=== PATIENT | female | born 1965 | race Caucasian/White ===

== ENCOUNTER 2019-07-30 08:27 | Outpatient (CLI) | payer OTHER, SELFPAY ==
--- NOTE | 2019-07-30 | EST_ITS ---
Patient Info Name: Charline Singh Age: 54 years : 1965 Gender: Female Ht: 61 in Wt: 180 lbs BSA: 1.91 m2 Exam Date: 07/30/2019 8:40 AM [facility] Status: [facility] Admit Date: 07/30/2019 Staff Ordering Physician: Es, Douglas Galdamez MD Shell Molder: Keven Barron RDCS, RT Attending Provider: AAMIR RAMOS Referring Physician: Es MACHUCA; Exercise Technologist: Nneka Dennis RDCS Nurse: Aamir Rodriguez ANP, [facility]- Exam Type: CA stress echo Study Info Indications R07.89 - Other chest pain Treadmill exercise stress echocardiogram is performed. Summary 1. Left ventricular chamber size and systolicc function are normal with no regional wall motion abnormalities with an estimated ejection fraction of 60-65% at rest. 2. Normal augmentation of left ventricular function with exercise with no segmental wall motion abnormalities. 3. Hypertensive blood pressure response. 4. Good exercise tolerance for age. 5. Inconclusive stress echo for ischemia secondary to low heart rate achieved. No evidence of ischemia at this workload. Stress Echo Findings Left Ventricle No regional wall motion abnormalities noted post stress. Normal augmentation of all wall segments without evidence of ischemia with stress. Left Ventricle Left ventricular chamber size and systolicc function are normal with no regional wall motion abnormalities with an estimated ejection fraction of 60-65% at rest. Protocol: [place] Stress ECG Details Stage: REST Duration (min): 5 min : 54 sec Speed (mph): 0.0 Grade (%): 0 HR (bpm): 59 SBP (mmHg): 129 DBP (mmHg): 86 METS: --- Stage: REST Duration (min): 25 min : 7 sec Speed (mph): 0.0 Grade (%): 0 HR (bpm): 56 SBP (mmHg): 129 DBP (mmHg): 86 METS: --- Stage: STAGE 1 Duration (min): 1 min : 0 sec Speed (mph): 1.7 Grade (%): 10 HR (bpm): 84 SBP (mmHg): 129 DBP (mmHg): 86 METS: --- Stage: STAGE 1 Duration (min): 2 min : 0 sec Speed (mph): 1.7 Grade (%): 10 HR (bpm): 89 SBP (mmHg): 129 DBP (mmHg): 86 METS: --- Stage: STAGE 1 Duration (min): 3 min : 0 sec Speed (mph): 1.7 Grade (%): 10 HR (bpm): 89 SBP (mmHg): 114 DBP (mmHg): 73 METS: --- Stage: STAGE 2 Duration (min): 1 min : 0 sec Speed (mph): 2.5 Grade (%): 12 HR (bpm): 97 SBP (mmHg): 114 DBP (mmHg): 73 METS: --- Stage: STAGE 2 Duration (min): 2 min : 0 sec Speed (mph): 2.5 Grade (%): 12 HR (bpm): 100 SBP (mmHg): 159 DBP (mmHg): 59 METS: --- Stage: STAGE 2 Duration (min): 3 min : 0 sec Speed (mph): 2.5 Grade (%): 12 HR (bpm): 104 SBP (mmHg): 159 DBP (mmHg): 59 METS: --- Stage: STAGE 3 Duration (min): 1 min : 0 sec Speed (mph): 3.4 Grade (%): 14 HR (bpm): 110 SBP (mmHg): 206 DBP (mmHg): 100 METS: --- Stage: STAGE 3 Duration (min): 2 min : 0 sec Speed (mph): 3.4 Grade (%): 14 HR (bpm):
== END 2019-07-30 08:28 | disposition home or self-care (01) ==
LOC: ANHCARD 08:29
PROVIDERS: PCP Internal Medicine; Visit Provider Internal Medicine
DX: R07.9 Chest pain, unspecified (principal)
CPT/HCPCS: 93351

== ENCOUNTER 2020-03-30 14:44 | Outpatient (CLI) | payer OTHER, SELFPAY ==
--- NOTE | ~2020-03-30 | MM_ITS ---
EXAMINATION: MM screening concepcion BI w scooter HISTORY: Screening mammogram TECHNIQUE: Craniocaudal and mediolateral oblique 3-D tomosynthesis images were obtained and synthetic 2-D images were generated. CAD analysis was submitted and interpreted. COMPARISON: 08/14/2018, 07/2017, 07/20/2016 bilateral digital screening mammogram examinations BREAST PARENCHYMAL COMPOSITION: There are scattered areas of fibroglandular density. FINDINGS: Benign circumscribed opacities anterior outer left breast are most likely stable benign int ramammary lymph nodes. There is no evidence of suspicious mass, calcification, or architectural disto rtion to suggest malignancy in either breast. There has been no suspicious interval change. IMPRESSION: 1. No mammographic evidence of malignancy. 2. Recommend routine screening mammography in one year. BI-RADS Category 2: Benign finding(s). Reviewed, dictated and finalized at location A. L SET ARTIST
== END 2020-03-30 14:45 | disposition home or self-care (01) ==
LOC: ANHIMG 14:47
PROVIDERS: PCP Internal Medicine; Visit Provider Internal Medicine
DX: Z12.31 Encounter for screening mammogram for malignant neoplasm of breast (principal)
CPT/HCPCS: 77063; 77067

== ENCOUNTER 2021-05-30 14:49 | Outpatient (CLI) | payer OTHER, SELFPAY ==
--- NOTE | ~2021-05-30 | MM_ITS ---
EXAMINATION: MM screening concepcion BI w scooter HISTORY: Screening TECHNIQUE: Craniocaudal and mediolateral oblique 3-D tomosynthesis images were obtained and synthetic 2-D images were generated. CAD analysis was submitted and interpreted. COMPARISON: Comparison to multiple prior studies sequentially, with oldest reviewed study dated 11/2015. BREAST PARENCHYMAL COMPOSITION: Breast composed of scattered areas of fibroglandular density. FINDINGS: Stable benign-appearing left breast mass. There is no evidence of suspicious mass, calcific ation, or architectural distortion to suggest malignancy in either breast. There has been no suspicio us interval change. IMPRESSION: 1. No mammographic evidence of malignancy. 2. Recommend routine screening mammography in one year. BI-RADS Category 2: Benign finding(s). Reviewed, dictated and finalized at location A. E CLEANER
== END 2021-05-30 14:50 | disposition home or self-care (01) ==
LOC: ANHIMG 14:51
PROVIDERS: PCP Internal Medicine; Visit Provider Internal Medicine
DX: Z12.31 Encounter for screening mammogram for malignant neoplasm of breast (principal)
CPT/HCPCS: 77063; 77067

== ENCOUNTER 2022-06-25 06:33 | Day surgery (SDC) | payer OTHER, SELFPAY ==
[2022-06-12 10:43] VITALS: BMI 32.1
--- NOTE | 2022-06-22 16:11 | PM.HPGS ---
History of Present Illness History of Present Illness Consent: Risks, benefits, and alternatives have been discussed and questions answered. Patient agrees to proceed with procedure. Chief complaint: Neoplasm Screening Narrative: Charline Singh is a 57 year old female Referred for colon screening Review of Systems Review of Systems: All systems reviewed & are unremarkable except as noted in HPI and below [facility] Social History Social History Smoking status: Never smoker Alcohol intake: current Substance use: never Substance use type: does not use Living arrangements: with family Spiritual care concerns: No Meds Home Medications and Allergies Home Medications Medication Instructions Recorded Confirmed Type amlodipine 5 mg tablet 5 mg PO DAILY 06/12/22 06/12/22 History escitalopram oxalate 5 mg tablet 5 mg PO DAILY 06/12/22 06/12/22 History lisinopril 20 mg tablet 20 mg PO DAILY 06/12/22 06/12/22 History nadolol 40 mg tablet 40 mg PO DAILY 06/12/22 06/12/22 History Allergies Allergy/AdvReac Type Severity Reaction Status Date / Time morphine Allergy Mild ITCHING Verified 06/12/22 10:43 Exam Const: General: alert Orientation/consciousness: patient oriented x3 Resp: Auscultation: clear to auscultation bilaterally Cardio: Rhythm: regular rhythm GI: GI Palp: Yes Soft to palpation and No Tenderness to palpation present (GI) Neuro: General: patient oriented x3 Assessment and Plan Assessment and plan (1) Colon cancer screening: Code(s): Z12.11 - Encounter for screening for malignant neoplasm of colon Status: Acute Assessment and Plan: Colonoscopy with possible biopsy or polypectomy or cautery or injection of substances.
--- NOTE | 2022-06-25 07:17 | P.PNAN_ITS ---
Anes - Initial Pre Proc Eval Procedure: Operation Date: 06/25/22 08:30 Proposed Procedures p Screening Colonoscopy - Jose G Alejandre MD Date/Time: 06/25/22 07:17 Surgeon: Jose G Alejandre MD Pre Op Diagnosis: Neoplasm Screening Patient Data Age: 57 Gender: F Height: 1.55 m Weight: 80.3 kg Allergies Allergy/AdvReac Type Severity Reaction Status Date / Time morphine Allergy Mild ITCHING Verified 06/12/22 10:43 Home Medications Medication Instructions Recorded Confirmed Type amlodipine 5 mg tablet 5 mg PO DAILY 06/12/22 06/25/22 History escitalopram oxalate 5 mg tablet 5 mg PO DAILY 06/12/22 06/25/22 History lisinopril 20 mg tablet 20 mg PO DAILY 06/12/22 06/25/22 History nadolol 40 mg tablet 40 mg PO DAILY 06/12/22 06/25/22 History Patient hx anesthesia problems: none Family hx anesthesia problems: none Results Review: All pre-operative results and documents have been reviewed as part of the pre- operative evaluation. [facility]LY [facility], [facility] Past Medical History Medical History (Updated 06/25/22 @ 07:34 by Zen Fisher DO) Anxiety Hypertension Social History Social History Smoking status: Never smoker Alcohol intake: current Substance use: never Substance use type: does not use Living arrangements: with family Spiritual care concerns: No Anes - Eval Final PreProcedure Day of Procedure 06/25/22 07:17 Patient weight: obese Heart: regular rate and rhythm Lungs: clear to auscultation Airway: Mallampati scale class II Neurological: alert and oriented Last oral intake: >/= 8 hours ASA classification: III Emergent: no Anesthetic plan: proceed Anesthesia type and monitoring: general GIVS and standard monitoring Results Review: All pre-operative results and documents have been reviewed as part of the pre- operative evaluation. Informed Consent: The patient's anesthetic plan and its attendant risks and benefits were discussed with the patient/family/POA. Questions were solicited and answers provided to the satisfaction of the patient/family/POA.
[2022-06-25] MEDS: LACTATED RINGERS 1,000 ML 150 ML IV CONT (08:00)
[2022-06-25 08:50] VITALS: BP 102/59; PULSE 65; RESP 16; O2SAT 100
[2022-06-25 09:00] VITALS: BP 107/72; PULSE 68; RESP 16; O2SAT 100
[2022-06-25 09:10] VITALS: BP 129/71; PULSE 61; RESP 17; O2SAT 100
--- NOTE | 2022-06-25 11:59 | WPDANESPN ---
Anes - Prog Note Post-Op Date/Time: 06/25/22 11:59 Cardiovascular status: normal Respiratory status: normal Airway patency: baseline Mental status: baseline Post-Op hydration status: normal Vital Signs: Last Vital Signs Pulse 61 06/25/22 09:10 Resp 17 06/25/22 09:10 BP 129/71 06/25/22 09:10 Pulse Ox 100 06/25/22 09:10 O2 Del Method Room Air 06/25/22 09:10 Pain Score (VAS): 0 I/O: Intake & Output 06/24/22 06/25/22 06/25/22 23:59 07:59 15:59 Intake Total 400 Balance 400 Post-procedural complaints: none Patient Feedback: Patient satisfied with anesthetic care. Other Findings: Patient vital signs back to baseline. Patient denies nausea and vomiting. Patient's pain under control. Patient OK for discharge.
== END 2022-06-25 08:25 | disposition home or self-care (01) ==
PROVIDERS: PCP Internal Medicine; Visit Provider Internal Medicine Gastroenterology
PROC: 0DJD8ZZ Inspection of Lower Intestinal Tract, Via Natural or Artificial Opening Endoscopic (ICD-10-PCS; CPT 45378; principal; 2022-06-25 08:30)
DX: Z12.11 Encounter for screening for malignant neoplasm of colon (principal)
CPT/HCPCS: 45380

== ENCOUNTER 2022-06-25 09:00 | Outpatient (NON) | payer OTHER, SELFPAY | END 2022-06-25 09:01 | disposition home or self-care (01) | LOC: ANHLAB 06-26 07:53 | PROVIDERS: PCP Internal Medicine; Visit Provider Internal Medicine Gastroenterology | DX: K62.1 Rectal polyp (principal) | CPT/HCPCS: 88305 ==

== ENCOUNTER 2022-07-25 15:15 | Outpatient (CLI) | payer OTHER, SELFPAY ==
--- NOTE | ~2022-07-25 | MM_ITS ---
EXAMINATION: MM screening [facility] BI w scooter HISTORY: Screening TECHNIQUE: Craniocaudal and mediolateral oblique 3-D tomosynthesis images were obtained and synthetic 2-D images were generated. CAD analysis was submitted and interpreted. COMPARISON: Comparison to multiple prior studies sequentially, with oldest reviewed study dated 09/13. BREAST PARENCHYMAL COMPOSITION: There are scattered areas of fibroglandular density. FINDINGS: Stable benign-appearing left breast mass in the lower outer quadrant. There is no evidence of suspicious mass, calcification, or architectural distortion to suggest malignancy in either breast . There has been no suspicious interval change. IMPRESSION: 1. No mammographic evidence of malignancy. 2. Recommend routine screening mammography in one year. BI-RADS Category 2: Benign finding(s). Reviewed, dictated and finalized at location A.
== END 2022-07-25 15:16 | disposition home or self-care (01) ==
LOC: ANHIMG 15:17
PROVIDERS: PCP Internal Medicine; Visit Provider Internal Medicine
DX: Z12.31 Encounter for screening mammogram for malignant neoplasm of breast (principal)
CPT/HCPCS: 77063; 77067

== ENCOUNTER 2023-09-20 15:15 | Outpatient (CLI) | payer OTHER, SELFPAY ==
--- NOTE | ~2023-09-20 | MM_ITS ---
EXAMINATION: MM screening concepcion BI w scooter HISTORY: Screening mammogram TECHNIQUE: Craniocaudal and mediolateral oblique 3-D tomosynthesis images were obtained and synthetic 2-D images were generated. CAD analysis was submitted and interpreted. COMPARISON: 07/25/2022, 05/30/2021, 03/30/2020 bilateral screening mammogram examinations BREAST PARENCHYMAL COMPOSITION: There are scattered areas of fibroglandular density. FINDINGS: Stable lower outer quadrant benign appearing left breast mass since 03/30/2020. There is no evidence of suspicious mass, calcification, or architectural distortion to suggest malignancy in eith er breast. There has been no suspicious interval change. IMPRESSION: 1. No mammographic evidence of malignancy. 2. Recommend routine screening mammography in one year. BI-RADS Category 2: Benign finding(s). Reviewed, dictated and finalized at location B.
== END 2023-09-20 15:16 | disposition home or self-care (01) ==
LOC: ANHIMG 15:17
PROVIDERS: PCP Internal Medicine; Visit Provider Internal Medicine
DX: Z12.31 Encounter for screening mammogram for malignant neoplasm of breast (principal)
CPT/HCPCS: 77063; 77067

== ENCOUNTER 2024-04-18 11:08 | Emergency (ER) | payer OTHER, SELFPAY ==
[2024-04-18 11:22] VITALS: BP 115/59; PULSE 87; RESP 18; TEMP 37.6; O2SAT 98
--- NOTE | 2024-04-18 12:34 | ED_ITS ---
HPI - URI/Sore Throat General Chief Complaint: Upper Respiratory Infection Stated Complaint: congestion Source: patient Mode of arrival: ambulatory Limitations: no limitations History of Present Illness HPI Narrative: 59-year-old female presents to [facility] complaints of nasal congestion, sore throat, headache and fatigue for the past 2 days. Patient reports that she has similar symptoms 3 weeks ago was given a Z-Munir by her primary care provider. Patient reports that she called her primary care provider back yesterday and was started on again another Z-Munir. Patient also takes Zyrtec daily. Patient cesia es sick contacts. Patient denies recent travel. Patient denies nausea vomiting, diarrhea, shortness of breath or wheezing. MD elicited complaint: sore throat, rhinorrhea, nasal congestion and sinus pain Onset (ago): day(s) (2) Consistency: constant Able to tolerate fluids by mouth: Yes Exacerbating factors: nothing Treatments prior to arrival: antibiotics Related Data Home Medications ?Medication ?Instructions ?Recorded ?Confirmed ?Last Taken ?Type amlodipine 5 mg tablet 5 mg PO DAILY 06/12/22 06/25/22 Unknown History escitalopram oxalate 5 mg tablet 5 mg PO DAILY 06/12/22 06/25/22 Unknown History lisinopril 20 mg tablet 20 mg PO DAILY 06/12/22 06/25/22 Unknown History azithromycin 250 mg tablet mg 04/18/24 Unknown History Allergies Allergy/AdvReac Type Severity Reaction Status Date / Time morphine Allergy Mild ITCHING Verified 04/18/24 11:47 Review of Systems Constitutional: Constitutional: Reports chills, Reports fatigue, Denies fever(s) and Denies weakness ENT: Reports nasal congestion and Denies sore throat Cardiovascular: Cardiovascular: Denies chest pain Respiratory: Respiratory: Denies cough, Denies dyspnea and Denies wheezing Gastrointestinal: Gastrointestinal: Denies diarrhea, Denies nausea and Denies vomiting Integumentary/Breasts: Skin/Breast: Denies rash Neurologic: Denies headache(s) [facility] Past Medical History Medical History Anxiety Hypertension Social History Social History Smoking status: Never smoker Alcohol intake: current Substance use: never Substance use type: does not use Living arrangements: with family Spiritual care concerns: No Comments At time of signature, I agree with nursing past medical, surgical, social and family history. There is no relevant family history pertinent to the presenting complaint. Exam Const: General: healthy appearing and no acute distress Nutritional Appearance: well nourished Orientation/consciousness: patient oriented x3 Limitations: no limitations HENMT: Head: normal to inspection Ears: external ears normal and TM's normal bilaterally Face/Nose/Sinus: Normal external nose present Face and sinus: sinus tenderness frontal Mouth: Yes Normal oral and palatal mucosa present and Yes moist mucous membranes Throat: uvula midline Other: Mild erythema to posterior pharynx, moderate nasal congestion noted Eyes: Conjunctivae: conjunctivae normal Neck: Neck: normal visual inspection Resp: Effort & Inspection: normal respiratory effort and not labored Auscultation: clear to auscultation bilaterally, no crackles, no rales, no rhonchi and no wheezes Cardio: Rate: regular rate Rhythm: regular rhythm Heart sounds: no murmurs Skin: General skin exam: normal color Rashes: no rashes Neuro: General: patient oriented x3 Cranial nerves: Yes Nystagmus not present Speech: normal speech Extrem: General: normal to inspection Psych: Affect: normal affect Attitude: cooperative Course Course Level of Care: Express Care Visit Vital Signs Vital signs: Vital Signs Temperature 37.6 C H 04/18/24 11:22 Pulse Rate 87 04/18/24 11:22 Respiratory Rate 18 04/18/24 11:22 Blood Pressure 115/59 L 04/18/24 11:22 Pulse Oximetry 98 04/18/24 11:22 Oxygen Delivery Room Air 04/18/24 11:22 Temperature 37.6 C H 04/18/24 11:22 Pulse Rate 87 04/18/24 11:22 Respiratory Rate 18 04/18/24 11:22 Blood Pressure 115/59 L 04/18/24 11:22 Pulse Oximetry 98 04/18/24 11:22 Oxygen Delivery Room Air 04/18/24 11:22 MDM - URI/Sore Throat MDM Narrative Medical decision making narrative: Discussed positive COVID, negative influenza negative strep results with patient. Educated patient on CDC recommendation of 5 days of quarantine from onset of symptoms. Encouraged patient continue Zyrtec daily. Educated patient take Flonase daily as prescribed as well as to take prednisone as prescribed to help severe nasal congestion. Educated patient to proceed to the emergency room if symptoms worsen Differential Diagnosis Differential diagnosis: Likely otitis media, sinusitis and viral infection Lab Data Labs: Lab Results 04/18/24 04/18/24 Range/Units 12:45 12:53 POC SARS CoV-2 Ag Positive (Negative) POC Grp A Strep Screen Negative (Negative) Critical Care Time Critical Care Time Critical Care Time: No Discharge Plan Discharge Clinical Impression: COVID-19 Patient Disposition: Home, Self-Care Condition: Stable Instructions: COVID-19 (Coronavirus Disease 2019) (ED) Additional Instructions: Rest Increase fluids Continue Zyrtec daily Take Flonase daily Take Medrol Dosepak as prescribed Follow-up with primary care provider if symptoms not improved Proceed to the emergency room symptoms worsen Patient Language: Urdu Prescriptions: New fluticasone propionate [Flonase Allergy Relief] 50 mcg/actuation spray,suspension 1 spray intranasal BID Qty: 16 0RF Rx Instructions: administer into each nostril prednisone 20 mg tablet 40 mg PO DAILY 5 Days Qty: 10 0RF No Action azithromycin 250 mg tablet lisinopril 20 mg tablet 20 mg PO DAILY amlodipine 5 mg tablet 5 mg PO DAILY escitalopram oxalate 5 mg tablet 5 mg PO DAILY Follow-up/Referrals: Es,Douglas Galdamez MD [Primary Care Provider] - Stand Alone Forms: Work/School Release IP Time of Disposition: 13:01
[2024-04-18 12:46] LABS: EDCOVIDSCREEN Positive (Negative)
[2024-04-18 12:55] LABS: EDSTREPNEGPOS1 Negative (Negative)
[2024-04-18 13:24] LABS: EDINFLUASCREEN Negative (Negative); EDINFLUBSCREEN Negative (Negative)
--- OUTSIDE RECORDS SUMMARY | 2024-04-25 15:50 | XMS_ITS | CONTINUITY OF CARE DOCUMENT ---
Author Name dwight quintanilla Address Unknown Organization [facility] Address [address] [place] [address] Phone [phone] Care Team Providers Care Historical Records Administrator Name Role Phone Sundar Morrison MD Unavailable [phone] BRAYDEN ABREU MD Unavailable BRAYDEN ABREU MD Unavailable PROBLEMS Condition Status Date Provider Notes Inconclusive stress echo 07/29 020, calcium score 0 in July 2019 active Sundar Morrison MD HTN essential active Sundar Morrison MD Abnormal EKG active Sundar Morrison MD Overweight active Sundar Morrison MD Fatigue active Sundar Morrison MD Sinus bradycardia active Sundar Morrison MD ENCOUNTERS Date Type Provider Location Encounter Diag nosis - In-person encounter Office Visit [facility] OverweightSinus bradycardiaFatigue - In-person encounter Office Visit [facility] Inconclusive stress echo 07/2019, calcium score 0 in July 2019 - In-person encounter Office Visit [facility] - In-person encounter Office Visit [facility] Inconclusive stress echo 07/2019, calcium score 0 in July 2019 - In-person encounter Office Visit [facility] Inconclusive stress echo 07/2019, calcium score 0 in July 2019HTN essentialAbnormal EKGOverweight VITAL SIGNS Date Observation Value Provider Body Mass Index (Ratio) 28.72 kg/m2 Lilibeth Morrison MD pulse rate 49 /min Allie Posley respiratory rate E&M 16 /min Allie Posley blood pressure, cuff size regular Le slie Posley blood pressure, diastolic 69 mm[Hg] Le slie Posley blood pressure, systolic 117 mm[Hg] Les lie Posley oxygen saturation, oximetry 96 % Allie Posley weight E&M 152 [lb_av] Allie Posley height E&M 61 [in_i] Allie Posley Body Mass Index (Ratio) 33.63 kg/m2 Lilibeth Morrison MD blood pressure, diastolic 88 mm[Hg] Lindsey nkLogic blood pressure, systolic 137 mm[Hg] Joan kLogic blood pressure, diastolic 88 mm[Hg] Noel rri Sera blood pressure, systolic 137 mm[Hg] Tlyer Zamora blood pressure, cuff size large Ke rri Sera oxygen saturation, oximetry 95 % Parvin Zamora respiratory rate E&M 16 /min Parvin fostereldsalvatore pulse rate 64 /min Parvin Tanner lder weight E&M 178 [lb_av] Sundar Morrison MD height E&M 61 [in_i] Parvin Tanner lder Body Mass Index (Ratio) 36.84 kg/m2 Lilibeth Morrison MD blood pressure, cuff size large Ke abhishek Zamora blood pressure, diastolic 86 mm[Hg] Noel Lizarraga blood pressure, systolic 144 mm[Hg] Tyler Zamora oxygen saturation, oximetry 94 % Parvin Lizarraga respiratory rate E&M 14 /min Parvin fostereld pulse rate 66 /min Parvin Tanner er weight E&M 195 [lb_av] Parvin Tanner lder height E&M 61 [in_i] Parvin Tanner [facility] Body Mass Index (Ratio) 36.27 kg/m2 Lilibeth Morrison MD blood pressure, diastolic 80 mm[Hg] Lindsey nkLog blood pressure, systolic 142 mm[Hg] Joan kLog blood pressure, cuff size regular Kr isty Heather blood pressure, diastolic 80 mm[Hg] Kr isty Heather blood pressure, systolic 142 mm[Hg] Kri strach Westfall pulse rate 68 /min Charline Westfall oxygen saturation, oximetry 98 % Charline Westfall respiratory rate E&M 18 /min Charline Heather weight E&M 192 [lb_av] Charline Heather height E&M 61 [in_i] Charline Westfall Body Mass Index (Ratio) 34.01 kg/m2 Lilibeth Morrison MD blood pressure, resting Yes Sandeep tity Katheryn oxygen saturation, oximetry 95 % Chastity Katheryn blood pressure, diastolic 100 mm[Hg] Ch astity Katheryn blood pressure, systolic 146 mm[Hg] Shalini stity Katheryn respiratory rate E&M 16 /min Chastit y Katheryn pulse rate 59 /min Chastity Katheryn height E&M 61 [in_i] Chastity Katheryn weight E&M 180 [lb_av] Chastity Katheryn ALLERGIES Allergy Name Onset Date Reaction Criticality Status MORPHINE itching itching High Criticality act anibal HISTORY OF MEDICATION USE Medication Status Instructions Dates Provider Indications Com ments amlodipine 5 mg tablet active TAKE 1 TABLET BY MOUTH EVERY DAY Aissatou Weir amlodipine 5 mg tablet completed TAKE 1 TABLET BY MOUTH DAILY - Aissatou Weir amlodipine 5 mg tablet completed Take 1 tablet by mouth once a day TAKE 1 TABLET BY MOUTH DAILY - Derrick spenser lisinopril 20 mg tablet active TAKE 1 TABLET BY MOUTH EVERY DAY Joanne Medina Ozempic 0.25 mg or 0.5 mg(2 mg/1.5 mL) pen injector completed - Sundar Morrison MD amlodipine 5 mg tablet completed TAKE 1 TABLET BY MOUTH DAILY - Nelson Marte amlodipine 5 mg tablet completed Take 1 tablet by mouth once a day - Parvin Zamora nadolol 40 mg tablet completed Take 1 tablet by mouth once a day - Sundar Morrison MD #30, 30 days supply, Prescribed by BRAYDEN ABREU, Filled 07/21/2019 lisinopril 20 mg tablet completed Take 1 tablet by mouth once a day - Joanne Medina escitalopram oxalate 5 mg tablet active Take 1 tablet by mouth once a day Chastity Katheryn #30, 30 days supply, Prescribed by BRAYDEN ABREU, Filled 07/21/2019 SOCIAL HISTORY Date Observation Value Provider smoking status Never smoker Sundar ballesteros MD social history E&M Smoking Histo ry: P atient has never smoked. Sundar Morrison MD social history reviewed E&M revi ewed - no changes required Sundar Morrison MD social history E&M S moking History: Makenna bean has never smoked. Sundar Morrison MD social history reviewed E&M revi ewed - no changes required Sundar Morrison MD smoking status Never smoker Parvin vyas social history E&M S moking History: Makenna bean has never smoked. Sundar Morrison MD social history reviewed E&M revi ewed - no changes required Sundar Morrison MD smoking status Never smoker Charline Romero number of grandchildren Sundar Morrison MD social history E&M S moking History: Makenna bean has never smoked. Sundar Morrison MD social history reviewed E&M revi ewed - no changes required Sundar Morrison MD smoking status Never smoker Chastity Hogu e FAMILY HISTORY Family Member Condition Father Family History of Pr ostate Cancer: Father Family History of Hy pertension: Mother Family History of Hy pertension: Mother Family History of Di abetes: INSURANCE PROVIDERS Payer name Policy type / Coverage type [facility] [employer] republican ID [id number] ADVANCE DIRECTIVES Name Date DISCUSSED - NO DECISION MADE TREATMENT PLAN Date Name Performer [id number],SSundar ra, [place] [id number],SSundar ra, [place] [id number],B,D iscussion of benefits for remote patient monitoring took place. Patient gives consent for remote monitoring of physiologic parameters including, but not limited to, weight, blood pressure, pulse oximetry, respiratory flow rate. BP today: 137/88 P rior BP: 144/86 (07/18/2021) Her updated medication list for this problem includes: Lisinopril 20 Mg Tablet (Lisinopril) ..... Take 1 tablet by mouth once a day Amlodipine 5 Mg Tablet (Amlodipine) ..... Take 1 tablet by mouth daily Nadolol 40 Mg Tablet (Nadolol) ..... Take 1 tablet by mouth once a day Sundar Morrison MD [id number],S, Sundar Garcia ra, [place] [id number],B, Sundar Garcia ra, [place] [id number],W, B P today: 144/86 P rior BP: 142/80 (01/10/2021) Her updated medication list for this problem includes: Lisinopril 20 Mg Tablet (Lisinopril) ..... Take 1 tablet by mouth once a day Amlodipine 5 Mg Tablet (Amlodipine) ..... Take 1 tablet by mouth once a day Nadolol 40 Mg Tablet (Nadolol) ..... Take 1 tablet by mouth once a day Sundar Morrison MD [id number],S, H er updated medication list for this problem includes: Lisinopril 20 Mg Tablet (Lisinopril) ..... Take 1 tablet by mouth once a day Amlodipine 5 Mg Tablet (Amlodipine) ..... Take 1 tablet by mouth once a day Nadolol 40 Mg Tablet (Nadolol) ..... Take 1 tablet by mouth once a day Sundar Morrison MD [id number],W, Sundar Garcia ra, [place] [id number],S, c hest pain free Sundar Morrison MD [id number],S, Sundar Garcia ra, [place] [id number],W, Sundar Garcia ra, MD [id number],B, B P today: 142/80 P rior BP: 146/100 (08/05/2019) Her updated medication list for this problem includes: Amlodipine 5 Mg Tablet (Amlodipine) ..... Take 1 tablet by mouth once a day Nadolol 40 Mg Tablet (Nadolol) ..... Take 1 tablet by mouth once a day Lisinopril 10 Mg Tablet (Lisinopril) ..... Take 1 tablet by mouth once a day Sundar Morrison MD [id number],SSundar ra, MD Cardiology Sundar Dixon Cardiology Sundar Dixon [facility]iology Sundar Dixon Cardiology:This visi t has been a part of the consistent, comprehensive, and ongoing management of the chronic medical condition(s) listed above for the patient. BP today: 117/69 P rior BP: 137/88 (05/14/2022) The following medications were removed from the medication list: Nadolol 40 Mg Tablet (Nadolol) ..... Take 1 tablet by mouth once a day Her updated medication list for this problem includes: Lisinopril 20 Mg Tablet (Lisinopril) ..... Take 1 tablet by mouth every day Amlodipine 5 Mg Tablet (Amlodipine) ..... Take 1 tablet by mouth daily Sundar Morrison MD Cardiology Sundar Dixon Cardiology Sundar Dixon Cardiology Sundar Dixon Cardiology:Discussio n of benefits for remote patient monitoring took place. Patient gives consent for remote monitoring of physiologic parameters including, but not limited to, weight, blood pressure, pulse oximetry, respiratory flow rate. BP today: 137/88 P rior BP: 144/86 (07/18/2021) Her updated medication list for this problem includes: Lisinopril 20 Mg Tablet (Lisinopril) ..... Take 1 tablet by mouth once a day Amlodipine 5 Mg Tablet (Amlodipine) ..... Take 1 tablet by mouth daily Nadolol 40 Mg Tablet (Nadolol) ..... Take 1 tablet by mouth once a day Sundar Morrison MD Cardiology [facility] Sund[facility]: B P today: 144/86 P rior BP: 142/80 (01/10/2021) Her updated medication list for this problem includes: Lisinopril 20 Mg Tablet (Lisinopril) ..... Take 1 tablet by mouth once a day Amlodipine 5 Mg Tablet (Amlodipine) ..... Take 1 tablet by mouth once a day Nadolol 40 Mg Tablet (Nadolol) ..... Take 1 tablet by mouth once a day Sundar Morrison MD Cardiology: H er updated medication list for this problem includes: Lisinopril 20 Mg Tablet (Lisinopril) ..... Take 1 tablet by mouth once a day Amlodipine 5 Mg Tablet (Amlodipine) ..... Take 1 tablet by mouth once a day Nadolol 40 Mg Tablet (Nadolol) ..... Take 1 tablet by mouth once a day Sundar Morrison MD Cardiology [facility]: c hest pain free Sundar Morrison MD Cardiology Sund[facility] Dixon [facility] Sund[facility]: B P today: 142/80 P rior BP: 146/100 (08/05/2019) Her updated medication list for this problem includes: Amlodipine 5 Mg Tablet (Amlodipine) ..... Take 1 tablet by mouth once a day Nadolol 40 Mg Tablet (Nadolol) ..... Take 1 tablet by mouth once a day Lisinopril 10 Mg Tablet (Lisinopril) ..... Take 1 tablet by mouth once a day Sundar Morrison MD Cardiology [facility]: r ecommend dietary and lifestyle modifications Sundar Morrison MD Cardiology: a dd amlodipine to regimen BP today: 146/100 Her updated medication list for this problem includes: Amlodipine Besylate 5 Mg Oral Tablet (Amlodipine besylate) ..... One tab by mouth daily Nadolol 40 Mg Oral Tablet (Nadolol) ..... Tk 1 t po qd Lisinopril 10 Mg Oral Tablet (Lisinopril) ..... Tk 1 t po d Sundar Morrison MD Cardiology: s tress echo inconclusive for ischemia d/t not reaching maximum predicated HR p t exercised for 10.3 METS a symtomatic o ccasional CP onsets with stress Sundar Morrison MD Date Name RPM (remote patient monitoring) CT, Coronary Calcium Score TSH, 3RD GENERATION W/REFLEX TO FT4 CardioIQ Advanced Li pid Panel with Inflammation ([facility]) HISTORY OF PROCEDURES Procedure Date Procedure Name Provider Procedure Notes S tatus Complex e/m visit add on Sundar Morrison MD completed EKG Sundar Morrison MD complet ed EKG Sundar Morrison MD complet ed EKG Sundar Morrison MD complet ed CT- Coronary CA score Sundar Morrison MD completed EKG Sundar Morrison MD complet ed
--- OUTSIDE RECORDS SUMMARY | 2024-04-25 15:50 | XMS_ITS | Continuity of Care Document ---
Author Organization [facility] Address [address] [place] [address] Phone Care Team Providers Care Turn Laster Name Role Phone Sudeep Man DO Unavailable Unavailable Advance Directives Directive Yes / No Effective Date File Name No Information Encounters Encounter Description Practice Location Reason(s) For Visit Diagnoses Date Provider Providers Copied on Encounter [facility], [address], [place], [place], [id number], [place] tel:[phone] [facility] No Information Donovan Campbell. [address] [place], [address], [place]. tel: [phone] Family History Family Member Type Diagnosis Age At Onset No Information Payers Payer name Insurance type Covered republican ID Authoriza tiruiz(s) [employer] SO[employer] CI [id number] Social History Type Description Quantity Date Captured Comments Sex Female Smoking Status No Information Chief Complaint And Reason For Visit No Information Reason For Referral Reason For Referral No Information History Of Present Illness Encounter Date Complaint History Of Prese nt Illness No Information Functional Status Date Functional Assessmen t No Information Instructions Date Instruction Additional Infor mation No Information Assessments Type Assessment Date No Information Patient Care Teams Name Effective Dates (start - stop) Status Members No Information
--- OUTSIDE RECORDS SUMMARY | 2024-04-25 15:52 | XMS_ITS | Encounter Summary ---
Author Organization [facility] Address [address] [place] [address] Care Team Providers Care Customer Acquisition Specialist Name Role Phone Douglas Suggs MD Primary Care Provider [phone] Reason for Visit * Reason Onset Date Comments UTI 11/30/2021 Encounter Details Date Type Department Care Team (Late st Contact Info) Description 11/30/2021 [facility] [address] [place] [id number] Douglas Suggs MD [address] [place] [address] UTI Social History Tobacco Use Types Packs/Day Years Used Date Smoking Tobacco: Never Comments Unknown Sex and Gender Information Value Date Recorded Sex Assigned at Not on file Legal Sex Female 5:03 AM [employer] Gender Identity Not on file Sexual Orientation Not on file documented as of this encounter Ordered Prescriptions Prescription Sig Dispense Quantity Refills Last Filled Start Date End Date sulfamethoxazole-t rimethoprim (BACTRIM DS) 800-160 mg per tablet Take 1 tablet by mouth 2 (two) times a day for 7 days 14 tablet 11/30/2021 12/07/2021 documented in this encounter Miscellaneous Notes * Telephone Encounter - Zandra Buckley MA - 11/30/2021 12:26 PM CDT rx sent * Telephone Encounter - Douglas Suggs MD - 11/30/2021 12:10 PM CDT Bactrim ds bid #14 * Telephone Encounter - Zandra Buckley MA - 11/30/2021 11:48 AM CDT Symptoms (primary and all associated):. Pt has freq urination and urgency to urinate. Some burning sensation. She also thinks she may have covid and is getting tested at 1:00 today due to sorethroat and sinus congestion. She is asking for something for the urinary issue Onset/Frequency:.2 weeks Temperature:. Has not taken temp Recent POCT testing (Strep/Flu/COVID/etc.):.? Getting tested today Recent lab results:. Recent B/P or SPO2 results:. Current treatments (both OTC and RX):. Current dosage of insulin/Coumadin:. Last office visit:. Preferred phone:. [phone] Confirm pharmacy:. [facility] Allergies reviewed:.Morphine documented in this encounter Plan of Treatment Not on file documented as of this encounter Visit Diagnoses Not on filedocumented in this encounter Care Teams Customer Acquisition Specialist Relationship Specialty Start Date End Date Douglas Suggs MD [id number] [place] [address] PCP - General Internal Medicine 11/08/20 documented as of this encounter
--- OUTSIDE RECORDS SUMMARY | 2024-04-25 15:52 | XMS_ITS | Clinical Summary ---
Author Organization [facility] [address] Address [address] [place] [address] Care Team Providers Care Museum Tour Guide Name Role Phone Douglas Suggs MD Primary Care Provider [phone] Allergies Active Allergy Reactions Criticality Noted Date Comments Morphine Rash,Itching High 08/05/2019 Medications amLODIPine (NORVASC) 5 mg tablet daily 1 Active escitalopram (LEXAPRO) 5 mg tablet TAKE 1 TABLET BY MOUTH DAILY 30 tablet 3 4 Active lisinopriL (PRINIVIL,ZESTR IL) 2.5 mg tablet Take 1 tablet (2.5 mg total) by mouth daily 90 tablet 2 4 Active lisinopriL (PRINIVIL,ZESTR IL) 2.5 mg tablet Take 1 tablet (2.5 mg total) by mouth daily 03/31/20 24 Discontinue d(Reorder) azithromycin (ZITHROMAX) 250 mg tablet Take 2 tabs (500 mg) by mouth today, than 1 tab (250 mg) daily for 4 days. 6 tablet 4 04/06/20 24 azithromycin (ZITHROMAX) 250 mg tablet Take 2 tabs (500 mg) by mouth today, than 1 tab (250 mg) daily for 4 days. 6 tablet 4 04/22/20 24 Active Problems Problem Noted Date Diagnosed Date Primary hypertension 08/05/2019 Encounters Date Type Department Care Team Description 04/20/2024 Orders Only [facility] [address] [place] [address] Douglas Suggs MD 04/18/2024 Orders Only [facility] [address] [place] [address] Douglas Suggs MD 04/17/2024 Telephone [facility] [address] [place] [phone] Douglas Suggs MD 04/01/2024 Telephone [facility] [address] [place] [phone] Douglas Suggs MD sinus congestion 01/31/2024 8:30 AM CDT Office Visit [facility] Care at [address] [address] Marie Reeves NP Well woman exam (Primary Dx); Screening mammogram for breast cancer from Last 3 Months Immunizations Name Administration Dates Next Due Hep B Vaccine 05/07/2019,04/02/2019 Influenza, Quadrivalent, Spl it, Intramuscular 02/19/2019,01/26/2016 Influenza, Quadrivalent, Spl it, Preservative Free, Intramuscular 01/25/2020,01/16/2018,01/31/2017 Influenza, Trivalent, High D ose, Split, Preservative Free, Intramuscular 02/11/2013 Pfizer SARS-CoV-2 Monovalent Vaccination (12+ Yrs) PURPLE 06/10/2020,05/20/2020 Surgical History Surgery Date Site/Laterality Comments SECTION ABLATION Around 2004 CATARACT EXTRACTION Medical History Medical History Date Comments Hypertension Family History Medical History Relation Name Comments Hypertension Father Prostate cancer Father Endometrial cancer Mother Hyperlipidemia Mother Hypertension Mother Relation Name Status Comments Father Mother Social History Tobacco Use Types Packs/Day Years Used Date Smoking Tobacco: Never Smokeless Tobacco: Never Tobacco Cessation:Counseling Given: Not Answered Humiliation, Afraid, Rape, and Kick questionnair e Answer Date Recorded Within the last year, have y ou been afraid of your partner or ex-partner? No 01/31/2024 Within the last year, have y ou been humiliated or emotionally abused in other ways by your partner or ex-partner? No Within the last year, have y ou been kicked, hit, slapped, or otherwise physically hurt by your partner or ex-partner? No 01/31/2024 Within the last year, have y ou been raped or forced to have any kind of sexual activity by your partner or ex-partner? No 01/31/2024 AUDIT-C Answer Date Recorded Q1: How often do you have a drink containing alc ohol? 2-4 times a month 01/31/2024 Q2: How many drinks containi ng alcohol do you have on a typical day when you are drinking? 1 or 2 01/31/2024 Q3: How often do you have si x or more drinks on one occasion? Never 01/31/2024 PHQ-2 Answer Date Recorded PHQ-2 Total Score (If total score is 3 or more points, staff should administer the PHQ-9) 0 01/31/2024 Personal Safety Answer Date Recorded Getting School Help Needed Not on file 04/18 Comments Unknown Sex and Gender Information Value Date Recorded Sex Assigned at Not on file Legal Sex Female 5:03 AM WARP KNITTER HELPER Gender Identity Not on file Sexual Orientation Not on file Obstetrics History Para Term AB IAB SAB Ectopic Multiple Livin g Live Births 2 2 2 2 2 Date Outcome GA Total Labor Labor/2nd/3rd Weight Sex Type Anes PTL Margi A1 A5 Name Clin 02/25 Term 40w 0d M C-Secti on Living 09/25 Term 40w 0d F Vaginal Living Last Filed Vital Signs Vital Sign Reading Time Taken Comments Blood Pressure 128/82 01/31/2024 8:41 AM CDT Pulse 59 05/14/2023 2:54 PM WARP KNITTER HELPER Temperature - - Respiratory Rate - - Oxygen Saturation - - Inhaled Oxygen Concentration - - Weight 71.7 kg (158 lb) 01/31/2024 8:41 AM CDT Height 154.9 cm (5' 1 ) 01/31/2024 8:41 AM CDT Body Mass Index 29.85 01/31/2024 8:41 AM CDT Plan of Treatment Health Maintenance Due Date Last Done Comments Hepatitis C Screening 1965 DTaP/Tdap/Td Vaccine (1 - Tdap) 1975 Zoster Vaccine (1 of 2) 2014 Breast Cancer Screening-Mammogram 05/30/2022 02/24/2014, 03/30/2013 Covid-19 Vaccine (3 - season) 2023 06/10/2020, 05/20/2020 Influenza Vaccine (#1) 2023 , 02/19/2019, 01/16/2018, Additional history exists Cervical Cancer Screening 01/30/2025 01/31/2024 Depression Screening 01/30/2025 01/31/2024 Regular Well Visit/Exam 18-64 01/30/2025 01/31/2024, 05/14/2023, 04/04/2022, Additional history exists Colon Cancer Screening-Colonoscopy 06/25/2032 06/25/2022 Pneumococcal vaccine <65 Aged Out No longer eligible based on patient's age to complete this topic Procedures Procedure Name Priority Date/Time Associated Diagnosis Comments SCAN - LABS 04/20/2024 8:46 AM WARP KNITTER HELPER SCAN - LABS 04/18/2024 3:47 PM WARP KNITTER HELPER SCAN - LABS 04/18/2024 3:47 PM WARP KNITTER HELPER SCAN - LABS 04/18/2024 3:40 PM WARP KNITTER HELPER PAP, REFLEX HPV Routine 01/31/2024 10:30 AM CDT Well woman exam SCREENING MAMMOGRAM 2D BILATERAL Routine 02/24/2014 11:21 AM CDT from Last 3 Months or Most Recently Relevant to Health Maintenance Results * SCAN - LABS (04/20/2024 8:46 AM WARP KNITTER HELPER) us Douglas Suggs MD Final Result * SCAN - LABS (04/18/2024 3:47 PM WARP KNITTER HELPER) us Douglas Suggs MD Final Result * SCAN - LABS (04/18/2024 3:47 PM WARP KNITTER HELPER) us Douglas Suggs MD Final Result * SCAN - LABS (04/18/2024 3:40 PM WARP KNITTER HELPER) Douglas Suggs MD Final Result * Pap, reflex HPV (01/31/2024 10:30 AM CDT) CLINICAL INFORMATION: Mely Champagne Comment:SCREENING LMP Mely Champagne Comment:UNKNOWN Previous Pap Mely Champagne Comment:NONE GIVEN Prev. Bx Mely Champagne Comment:NONE GIVEN SOURCE: Mely Champagne Comment:Cervix, Endocervix Pap, specimen adequacy Mely Champagne Comment: Satisfactory for evaluation. Endocervical/transformation zone component present. HPV interp Mely Champagne Comment: Cytology Results: Negative for intraepithelial lesion or malignancy. COMMENTS Mely Champagne Comment: This Pap test has been evaluated with computer assisted technology. Legal Compliance Officer [facility] st Mitra Champagne Comment: BKA, CT(ASCP) CT screening location: [address] [address] Administration [place] [address] Comment Mely Champagne Comment: EXPLANATORY NOTE: The Pap is a screening test for cervical cancer. It is not a diagnostic test and is subject to false negative and false positive results. It is most reliable when a satisfactory sample, regularly obtained, is submitted with relevant clinical findings and history, and when the Pap result is evaluated along with historic and current clinical information. Thin prep 01/31/2024 10:3 0 AM CDT 02/01/2024 2:06 AM CDT Marie Reeves NP LAB CYTOLOGY ORDERABLES Fin al Result [facility] [address] [address] Administration [place] [id number] * Screening Mammogram 2D Bilateral (02/24/2014 11:21 AM CDT) Anatomical Region Laterality Modality Breast Bilateral Mammography 02/24/2014 11:2 1 AM CDT Impressions 02/25/2014 9:16 AM CDT No mammographic evidence of malignancy. Stable benign appearing left breast mass. Routine annual screening mammography is recommended. ASSESSMENT: ??BI-RADS: 2 BENIGN. The patient will be entered into a reminder system for an annual screening mammogram in 1 year. THIS IS AN ELECTRONICALLY VERIFIED REPORT 02/25/2014 9:12 AM: ??Ignacio Coker M.D. Ignacio Coker M.D. [place]:gisselle 09:12 AM 09:12 AM [facility] [EOD] Narrative 02/25/2014 9:16 AM CDT EXAMINATION: ??BILATERAL DIGITAL SCREENING MAMMOGRAM HISTORY: Routine screening. COMPARISON: ??02/22/2011, 02/26/2012 FINDINGS: There has been no suspicious interval change. There are scattered areas of fibroglandular density. There is a benign appearing mass in the anterior left breast, not suspiciously changed. There is no dominant mass in the right breast. There is no suspicious calcification or architectural distortion. CAD was utilized to evaluate this mammogram. Procedure Note Provider, MD Elsi - 09/12/2020 EXAMINATION: BILATERAL DIGITAL SCREENING MAMMOGRAM HISTORY: Routine screening. COMPARISON: 02/22/2011, 02/26/2012 FINDINGS: There has been no suspicious interval change. There are scattered areas of fibroglandular density. There is a benign appearing mass in the anterior left breast, notsuspiciously changed. There is no dominant mass in the right breast. There is no suspicious calcification or architectural distortion. CAD was utilized to evaluate this mammogram. IMPRESSION: No mammographic evidence of malignancy. Stable benign appearing leftbreast mass. Routine annual screening mammography is recommended. ASSESSMENT: BI-RADS: 2 BENIGN. The patient will be entered into [employer] system for an annual screening mammogram in 1 year. THIS IS AN ELECTRONICALLY VERIFIED REPORT 02/25/2014 9:12 AM: Ignacio Coker M.D. Ignacio Coker M.D. [place]:gisselle 09:12 AM 09:12 AM [facility] [EOD] Ousmane Pinto MD IMG MAMMO PROCEDURES Final Result from Last 3 Months or Most Recently Relevant to Health Maintenance Insurance [facility] [employer] [facility] [employer] Care Teams Museum Tour Guide Relationship Specialty Start Date End Date Douglas Suggs MD [address] [facility] [address] [address] PCP - General Internal Medicine 11/08/20
--- OUTSIDE RECORDS SUMMARY | 2024-04-25 15:52 | XMS_ITS | Encounter Summary ---
Author Organization [facility] Address [address] [place] [address] Care Team Providers Care Field Representatives Director Name Role Phone Douglas Suggs MD Primary Care Provider Encounter Details Date Type Department Care Team (Late st Contact Info) Description 04/24/2022 [facility] [address] [facility] [address] [place] [address] Douglas Suggs MD [address] [facility] [address] [place], [place] [id number] Social History Tobacco Use Types Packs/Day Years Used Date Smoking Tobacco: Never Comments Unknown Sex and Gender Information Value Date Recorded Sex Assigned at Not on file Legal Sex Female 5:03 AM SEARCH MANAGER Gender Identity Not on file Sexual Orientation Not on file documented as of this encounter Miscellaneous Notes * Telephone Encounter - Lolis Brian MA - 04/24/2022 12:17 PM CST Pt aware/mk CH MANAGER * Telephone Encounter - Lolis Brian MA - 04/24/2022 12:17 PM CST ----- Message from Douglas Suggs MD sent at 04/17/2022 5:57 AM SEARCH MANAGER ----- All labs ok except elevate lipid, please diet, exercise, recheck 6-12 months If remains elevated will need med change CH MANAGER documented in this encounter Plan of Treatment Not on file documented as of this encounter Visit Diagnoses Not on filedocumented in this encounter Care Teams Field Representatives Director Relationship Specialty Start Date End Date Douglas Suggs MD [address] [address] PCP - General Internal Medicine 11/08/20 documented as of this encounter
--- OUTSIDE RECORDS SUMMARY | 2024-04-25 15:52 | XMS_ITS | CONTINUITY OF CARE DOCUMENT ---
Author Name noahkhris noahkhris Address Unknown Organization [facility] Address [address] [facility] [address] [place] [address] Phone [phone] Care Team Providers Care Rotary Helper Name Role Phone Sundar Morrison MD Unavailable BRAYDEN ABREU MD Unavailable BRAYDEN ABREU MD Unavailable PROBLEMS Condition Status Date Provider Notes HTN essential active Sundar Morrison MD Abnormal EKG active Sundar Morrison MD Sinus bradycardia active Sundar Morrison MD Fatigue active Sundar Morrison MD Overweight active Sundar Morrison MD Inconclusive stress echo 4 020, calcium score 0 in July 2019 active Sundar Morrison MD ENCOUNTERS Date Type [...] rri Sera blood pressure, systolic 137 mm[Hg] Tyler Zamora blood pressure, cuff size large Ke [...] height E&M 61 [in_i] Parvin Tanner [facility] Body Mass Index (Ratio) 36.27 kg/m2 Lilibeth Morrison MD blood pressure, diastolic 80 mm[Hg] Lindsey nkLog blood pressure, systolic 142 mm[Hg] Joan kLog blood pressure, cuff size regular Kr isty Heather blood pressure, diastolic 80 mm[Hg] Kr isty Heather blood pressure, systolic 142 mm[Hg] Kri strach [place] pulse rate 68 /min Charline [place] oxygen saturation, oximetry 98 % Charline [place] respiratory rate E&M 18 /min Charline Heather weight E&M 192 [lb_av] Charline Heather height E&M 61 [in_i] Charline [place] Body Mass Index (Ratio) 34.01 kg/m2 Lilibeth [...] Payer name Policy type / Coverage type Baeta democrat ID [employer] [id number] ADVANCE DIRECTIVES Name Date DISCUSSED - NO DECISION MADE TREATMENT PLAN Date Name Performer [id number],SSundar ra, [place] [id number],SSundar ra, [place] [id number],B,D iscussion of benefits for remote patient monitoring [...] mouth once a day Sundar Morrison MD [id number],S, Sundar Garcia ra, [place] [id number],B, Sundar Garcia ra, [place] [id number],W, B P today: 144/86 P rior BP: 142/80 (01/10/2021) Her updated medication list for this problem includes: Lisinopril 20 Mg Tablet (Lisinopril) ..... Take 1 tablet by mouth once a day Amlodipine 5 Mg Tablet (Amlodipine) ..... Take 1 tablet by mouth once a day Nadolol 40 Mg Tablet (Nadolol) ..... Take 1 tablet by mouth once a day Sundar Morrison MD [id number],S, H er updated medication list for this problem includes: Lisinopril 20 Mg Tablet (Lisinopril) ..... Take 1 tablet by mouth once a day Amlodipine 5 Mg Tablet (Amlodipine) ..... Take 1 tablet by mouth once a day Nadolol 40 Mg Tablet (Nadolol) ..... Take 1 tablet by mouth once a day Sundar Morrison MD [id number],W, Sundar Garcia ra, [place] [id number],S, c hest pain free Sundar Morrison MD [id number],S, Sundar Garcia ra, MD [id number],W, Sundar Garcia ra, [place] [id number],B, B P today: 142/80 P rior BP: 146/100 (08/05/2019) Her updated medication list for this problem includes: Amlodipine 5 Mg Tablet (Amlodipine) ..... Take 1 tablet by mouth once a day Nadolol 40 Mg Tablet (Nadolol) ..... Take 1 tablet by mouth once a day Lisinopril 10 Mg Tablet (Lisinopril) ..... Take 1 tablet by mouth once a day Sundar Morrison MD [id number],SSundar ra, MD Cardiology Sundar Dixon Cardiology Sundar [...]
--- OUTSIDE RECORDS SUMMARY | 2024-04-25 15:52 | XMS_ITS | Encounter Summary ---
Author Organization [facility] Address [address] [place] [address] Care Team Providers Care Industry Operations Investigator Name Role Phone Douglas Suggs MD Primary Care Provider Reason for Visit * Reason Onset Date Comments Sinusitis 12/11/2021 Nasal Congestion 12/11/2021 Encounter Details Date Type Department Care Team (Late st Contact Info) Description 12/11/2021 [facility] [address] 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 6 tablet 12/11/2021 04/04/2022 documented in this encounter Miscellaneous Notes * Telephone Encounter - Douglas Suggs MD - 12/11/2021 8:53 AM CDT Zpak called in * Telephone Encounter - Carolee Puente - 12/11/2021 8:29 AM CDT Symptoms (primary and all associated):.Pt tested positive for Covid on 11/29/21. She stayed home from work and didn't return until the . Pt still has terrible headaches and sinus congestion. Coughing when lying down. Pt sounds hoarse. Taking Nyquil, Dayquil, Zyrtec. Nothing seems to help. She is hoping we can send an abx. Onset/Frequency:.11/29/21 Temperature:.No fever Recent POCT testing (Strep/Flu/COVID/etc.):. Recent lab results:. Recent B/P or SPO2 results:. Current treatments (both OTC and RX):. Current dosage of insulin/Coumadin:. Last office visit:.12/05/2020. LN will schedule a future appt after hearing from you. Preferred phone:.[phone] Confirm pharmacy:.[facility] Allergies reviewed:.morphine documented in this encounter Plan of Treatment Not on file documented as of this encounter Visit Diagnoses Not on filedocumented in this encounter Care Teams Industry Operations Investigator Relationship Specialty Start Date End Date Douglas Suggs MD [address] [address] PCP - General Internal Medicine 11/08/20 documented as of this encounter
--- OUTSIDE RECORDS SUMMARY | 2024-04-25 15:52 | XMS_ITS | Encounter Summary ---
Author Organization [facility] Address [address] [place] [address] Care Team Providers Care Frankfurter Inspector Name Role Phone Douglas Suggs MD Primary Care Provider Encounter Details Date Type Department Care Team (Late st Contact Info) Description 07/25/2022 [facility] [address] [facility] [address] [place] [address] Douglas Suggs MD [address] [facility] [address] [place], [place] [id number] Social History Tobacco Use Types Packs/Day Years Used Date Smoking Tobacco: Never Comments Unknown Sex and Gender Information Value Date Recorded Sex Assigned at Not on file Legal Sex Female 5:03 AM 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 Please do monthly breast self exams. documented in this encounter Plan of Treatment Not on file documented as of this encounter Procedures Procedure Name Priority Date/Time Associated Diagnosis Comments SCAN - LABS 07/25/2022 3:43 PM CDT documented in this encounter Results * SCAN - LABS (07/25/2022 3:43 PM CDT) us Douglas Suggs MD Final Result documented in this encounter Visit Diagnoses Not on filedocumented in this encounter Care Teams Frankfurter Inspector Relationship Specialty Start Date End Date Douglas Suggs MD [address] [address] PCP - General Internal Medicine 11/08/20 documented as of this encounter
--- OUTSIDE RECORDS SUMMARY | 2024-04-25 15:52 | XMS_ITS | Encounter Summary ---
Author Organization [facility] Address [address] [place] [address] Care Team Providers Care Hand Carver Name Role Phone Douglas Suggs MD Primary Care Provider [phone] Reason for Referral * Cardiology (Routine) - Authorized Specialty Diagnoses / Procedures Referred By Contac t Referred To Contact Diagnoses Palpitations Procedures 48 HR Holter Monitor Douglas Suggs MD [address] [facility] [address] [place] [address] Phone: tel: fax: [address] [address] Referral ID Status Reason Start Date Expiration Date V isits Requested Visits Authorized [id number] Authorized 11/12/2023 12/11/2024 1 1 Encounter Details Date Type Department Care Team (Late st Contact Info) Description 11/12/2023 Orders Only [facility] [address] [facility] [address] [place] [facility] [place] [address] Lolis Brian MA [address] [place] [address] Palpitations (Primary Dx) Social History Tobacco Use Types Packs/Day Years Used Date Smoking Tobacco: Never Personal Safety Answer Date Recorded Getting School Help Needed Not on file 04/18 Comments Unknown Sex and Gender Information Value Date Recorded Sex Assigned at Not on file Legal Sex Female 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
--- OUTSIDE RECORDS SUMMARY | 2024-04-25 15:52 | XMS_ITS | Referral Summary ---
Author Organization [facility] [address] Address [address] [place] [address] Care Team Providers Care Emergency Department Nurse Name Role Phone Douglas Suggs MD Primary Care Provider [phone] Encounters Date Type Department Care Team Description 04/20/2024 Orders Only [facility] [address] [phone] Douglas Suggs MD 04/18/2024 Orders Only [facility] [address] [address] Douglas Suggs MD 04/17/2024 Telephone [facility] [address] [address] Douglas Suggs MD 04/01/2024 Telephone [facility] [address] [address] Douglas Suggs MD sinus congestion 01/31/2024 8:30 AM CDT Office Visit [facility] at [address] [address] Marie Reeves NP Well woman exam (Primary Dx); Screening mammogram for breast cancer from Last 3 Months Allergies Active Allergy Reactions Criticality Noted Date [...] Noted Date Diagnosed Date Primary hypertension 08/05/2019 Immunizations Name Administration Dates Next Due Hep B Vaccine 05/07/2019,04/02/2019 Influenza, Quadrivalent, Spl it, Intramuscular 02/19/2019,01/26/2016 Influenza, Quadrivalent, Spl it, Preservative Free, Intramuscular 01/25/2020,01/16/2018,01/31/2017 Influenza, Trivalent, High D ose, Split, Preservative Free, Intramuscular 02/11/2013 Pfizer SARS-CoV-2 Monovalent Vaccination (12+ Yrs) PURPLE 06/10/2020,05/20/2020 Social History Tobacco Use Types Packs/Day Years [...] on file Legal Sex Female 5:03 AM ELIGIBILITY SUPERVISOR Gender Identity Not on file Sexual Orientation Not on file Last Filed Vital Signs Vital Sign Reading Time Taken Comments Blood Pressure 128/82 01/31/2024 8:41 AM CDT Pulse 59 05/14/2023 2:54 PM ELIGIBILITY SUPERVISOR Temperature - - Respiratory Rate - - Oxygen Saturation - - Inhaled Oxygen Concentration - - Weight 71.7 kg (158 lb) 01/31/2024 8:41 AM CDT Height 154.9 cm (5' 1 ) 01/31/2024 8:41 AM CDT Body Mass Index 29.85 01/31/2024 8:41 AM CDT Plan of Treatment Not on file Procedures Procedure Name Priority Date/Time Associated Diagnosis Comments SCAN - LABS 04/20/2024 8:46 AM ELIGIBILITY SUPERVISOR SCAN - LABS 04/18/2024 3:47 PM ELIGIBILITY SUPERVISOR SCAN - LABS 04/18/2024 3:47 PM ELIGIBILITY SUPERVISOR SCAN - LABS 04/18/2024 3:40 PM ELIGIBILITY SUPERVISOR PAP, REFLEX HPV Routine 01/31/2024 10:30 AM CDT Well woman exam SCREENING MAMMOGRAM 2D BILATERAL Routine 02/24/2014 11:21 AM CDT from Last 3 Months or Most Recently Relevant to Health Maintenance Results * SCAN - LABS (04/20/2024 8:46 AM ELIGIBILITY SUPERVISOR) Result Marcello Suggs MD Final Result * SCAN - LABS (04/18/2024 3:47 PM ELIGIBILITY SUPERVISOR) Result Marcello Suggs MD Final Result * SCAN - LABS (04/18/2024 3:47 PM ELIGIBILITY SUPERVISOR) Result Marcello Suggs MD Final Result * SCAN - LABS (04/18/2024 3:40 PM ELIGIBILITY SUPERVISOR) Result Marcello Suggs MD Final Result * Pap, reflex HPV (01/31/2024 10:30 AM CDT) CLINICAL INFORMATION: Aleshia Champagne Comment:SCREENING LMP Aleshia Champagne Comment:UNKNOWN Previous Pap Aleshia Champagne Comment:NONE GIVEN Prev. Bx Aleshia Champagne Comment:NONE GIVEN SOURCE: Aleshia Champagne Comment:Cervix, Endocervix Pap, specimen adequacy Aleshia Champagne Comment: Satisfactory for evaluation. Endocervical/transformation zone component present. HPV interp Aleshia Champagne Comment: Cytology Results: Negative for intraepithelial lesion or malignancy. COMMENTS Aleshia Champagne Comment: This Pap test has been evaluated with computer assisted technology. Screw Cutter Jonathan Stallings Comment: BKKETTY Magana(ASCP) CT screening location: [place] [address] [address] [address] Comment Aleshia Champagne Comment: EXPLANATORY NOTE: The Pap is [...] 0 AM CDT 02/01/2024 2:06 AM CDT us Marie Reeves NP LAB CYTOLOGY ORDERABLES Fin al Result [facility] [address] [place] [address] * Screening Mammogram 2D Bilateral (02/24/2014 11:21 [...] REPORT 02/25/2014 9:12 AM: ??Ignacio Coker M.D. Ingacio Coker M.D. [place] 09:12 AM 09:12 AM [facility] [EOD] Narrative 02/25/2014 9:16 AM CDT EXAMINATION: [...] BENIGN. The patient will be entered into [employer] system for an annual screening mammogram in 1 year. THIS IS AN ELECTRONICALLY VERIFIED REPORT 02/25/2014 9:12 AM: Ignacio Coker M.D. Ignacio Coker M.D. [place]:gisselle 09:12 AM 09:12 AM [facility] [EOD] Ousmane Pinto MD IMG MAMMO PROCEDURES Final Result from Last 3 Months or Most Recently Relevant to Health Maintenance Insurance [facility] [employer] [facility] Care Teams Emergency Department Nurse Relationship Specialty Start Date End Date Douglas Suggs MD [address] [address] PCP - General Internal Medicine 11/08/20
--- OUTSIDE RECORDS SUMMARY | 2024-04-25 15:52 | XMS_ITS | Encounter Summary ---
Author Organization [facility] Address [address] [place] [address] Care Team Providers Care Asphalt Paving Supervisor Name Role Phone Douglas Suggs MD Primary Care Provider Encounter Details Date Type Department Care Team (Late st Contact Info) Description 04/17/2024 [facility] [address] [facility] [address] [place] [phone] Douglas Suggs MD [address] [facility] [address] [place], [place] [id number] Social History Tobacco Use Types Packs/Day Years Used Date Smoking Tobacco: Never Smokeless Tobacco: Never Humiliation, Afraid, Rape, and Kick questionnair e [...] on file Legal Sex Female 5:03 AM PRESBYTERIAN CLERGY Gender Identity Not on file Sexual Orientation Not on file documented as of this encounter Ordered Prescriptions Prescription Sig Dispense Quantity Refills Last Filled Start Date End Date azithromycin (ZITHROMAX) 250 mg tablet Take 2 tabs (500 mg) by mouth today, than 1 tab (250 mg) daily for 4 days. 6 tablet 04/17/2024 04/22/2024 documented in this encounter Miscellaneous Notes * Telephone Encounter - Christina Hernandez - 04/17/2024 8:22 AM PRESBYTERIAN CLERGY ERX sent. BYTERIAN CLERGY * Telephone Encounter - Douglas Suggs MD - 04/17/2024 8:20 AM CST Please send out a zpak #1 Sig: as directed If not allergic. BYTERIAN CLERGY * Telephone Encounter - Christina Hernandez - 04/17/2024 8:06 AM PRESBYTERIAN CLERGY Symptoms (primary and all associated):. Head congestion, nasal congestion, sore throat, headache, fatigue Onset/Frequency:. Yesterday morning Temperature:. No Recent POCT testing (Strep/Flu/COVID/etc.):. not tested Current treatments (both OTC and RX):. Nyquil and zyrtec Current dosage of insulin/Coumadin:.no Last office visit:.04/2023 Preferred phone:.[phone] Confirm pharmacy:.[facility] Allergies reviewed:. Morphine Pt called on 04/01 similar sx given zpak and was doing better but sx came back yesterday. Requestinganother around of abx. BYTERIAN CLERGY documented in this encounter Plan of Treatment Not on file documented as of this encounter Visit Diagnoses Not on filedocumented in this encounter Care Teams Asphalt Paving Supervisor Relationship Specialty Start Date End Date Douglas Suggs MD [address] [address] PCP - General Internal Medicine 11/08/20 documented as of this encounter
--- OUTSIDE RECORDS SUMMARY | 2024-04-25 15:52 | XMS_ITS | Encounter Summary ---
Author Organization [facility] Address [address] [place] [address] Care Team Providers Care Furniture Assembler Name Role Phone Douglas Suggs MD Primary Care Provider Reason for Visit * Reason Onset Date Comments Rash 03/13/2022 Poison Lupe 03/13/2022 Encounter Details Date Type Department Care Team (Late st Contact Info) Description 03/13/2022 [facility] [address] [facility] [address] [place] [address] Douglas Suggs MD [address] [facility] [address] [place], [place] [id number] Rash; Poison Lupe Social History Tobacco Use Types Packs/Day Years Used Date Smoking Tobacco: Never Comments Unknown Sex and Gender Information Value Date Recorded Sex Assigned at Not on file Legal Sex Female 5:03 AM FRONT OFFICE ASSOCIATE Gender Identity Not on file Sexual Orientation Not on file documented as of this encounter Ordered Prescriptions Prescription Sig Dispense Quantity Refills Last Filled Start Date End Date methylPREDNISolone (MEDROL DOSEPACK) 4 mg Dosepack Take as directed on package. 21 tablet 03/13/2022 2 documented in this encounter Miscellaneous Notes * Telephone Encounter - Douglas Suggs MD - 03/13/2022 9:13 AM CST I sent in a medrol dose pack T OFFICE ASSOCIATE * Telephone Encounter - Carolee Puente - 03/13/2022 8:17 AM CST Symptoms (primary and all associated):.rash on left forearm, pinkish red bumps. Also on r forearm and beginning on L knee. She was planting bulbs on her tree line. She wore long sleeves, gloves and long pants but has it again anyway. They are oozing. Onset/Frequency:.03/09/22 Temperature:.No fever Recent POCT testing (Strep/Flu/COVID/etc.):. Recent lab results:. Recent B/P or SPO2 results:. Current treatments (both OTC and RX):. Current dosage of insulin/Coumadin:. Last office visit:.11/2020 nxt 04/04/22 Preferred phone:.[phone] Confirm pharmacy:. [phone] Allergies reviewed:.morphine T OFFICE ASSOCIATE documented in this encounter Plan of Treatment Not on file documented as of this encounter Visit Diagnoses Not on filedocumented in this encounter Care Teams Furniture Assembler Relationship Specialty Start Date End Date Douglas Suggs MD [address] [facility] [address] [place] [address] PCP - General Internal Medicine 11/08/20 documented as of this encounter
--- OUTSIDE RECORDS SUMMARY | 2024-04-25 15:52 | XMS_ITS | Encounter Summary ---
Author Organization [facility] Address [address] [place] [address] Care Team Providers Care Plumbing Service Technician Name Role Phone Douglas Suggs MD Primary Care Provider [phone] Reason for Visit * Reason Comments Preventative Care Encounter Details Date Type Department Care Team (Late st Contact Info) Description 12/05/2020 4:00 PM CDT Office Visit [facility] [address] [facility] [address] [place] [address] Douglas Suggs MD [address] [facility] [address] [place] [address] Essential hypertension (Primary Dx); Depression, unspecified depression type; Routine general medical examination at a health care facility Social History Tobacco Use Types Packs/Day Years Used Date Smoking Tobacco: Never Comments Unknown Sex and Gender Information Value Date Recorded Sex Assigned at Not on file Legal Sex Female 5:03 AM BUILDING ADMIN Gender Identity Not on file Sexual Orientation Not on file documented as of this encounter Last Filed Vital Signs Vital Sign Reading Time Taken Comments Blood Pressure 136/75 12/05/2020 4:35 PM CDT Pulse 52 12/05/2020 4:35 PM CDT Temperature - - Respiratory Rate - - Oxygen Saturation - - Inhaled Oxygen Concentration - - Weight 86.6 kg (191 lb) 12/05/2020 4:35 PM CDT Height 154.9 cm (5' 1 ) 12/05/2020 4:35 PM CDT Body Mass Index 36.09 12/05/2020 4:35 PM CDT documented in this encounter Progress Notes * Douglas Suggs MD - 12/05/2020 4:00 PM CDT Images from the original note were not included. Subjective/Objective Patient ID: Charline Singh is a 55 y.o. female. Chief Complaint Preventative Care HPI Here for evaluation and treatment of her medical problems and a wellness visit. She has been doing reasonably well she has no new complaints 1. Hypertension on medication 2. Depression on medication has been under stress with her mother's recent illnesses in the of her father. Otherwise doing well Past Surgical History: Procedure Laterality Date ??? SECTION Family History Problem Relation Age of Onset ??? Hyperlipidemia Mother ??? Hypertension Mother ??? Prostate cancer Father ??? Hypertension Father Social History Tobacco Use ??? Smoking status: Never Smoker Substance Use Topics ??? Alcohol use: Not on file ??? Drug use: Yes Types: Alcohol There is no immunization history on file for this patient. Current Outpatient Medications Medication Sig ??? amLODIPine (NORVASC) 5 mg tablet daily ??? escitalopram (LEXAPRO) 5 mg tablet TAKE 1 TABLET BY MOUTH DAILY ??? lisinopriL (PRINIVIL,ZESTRIL) 10 mg tablet Take 1 tablet (10 mg total) by mouth daily ??? nadoloL (CORGARD) 40 mg tablet Take 1 tablet (40 mg total) by mouth daily Review of Systems Constitutional: Negative for appetite change, fatigue, fever and unexpected weight change. HENT: Negative for ear pain, hearing loss and sore throat. Eyes: Negative for visual disturbance. Respiratory: Negative for cough, shortness of breath and wheezing. Cardiovascular: Negative for chest pain, palpitations and leg swelling. Gastrointestinal: Negative for abdominal pain, anal bleeding, blood in stool, constipation, diarrhea, nausea and vomiting. Endocrine: Negative for cold intolerance, heat intolerance, polydipsia, polyphagia and polyuria. Genitourinary: Negative for dysuria and hematuria. Musculoskeletal: Negative for arthralgias, back pain and joint swelling. Skin: Negative for rash. Neurological: Negative for dizziness, weakness and headaches. Hematological: Negative for adenopathy. Does not bruise/bleed easily. Psychiatric/Behavioral: Negative for dysphoric mood. The patient is not nervous/anxious. Breast: Negative for tenderness and lump(s). Patient Vital Signs for the past 24 hrs: BP Pulse Height Weight 12/05/20 1635 136/75 52 154.9 cm (5' 1 ) 86.6 kg (191 lb) Wt Readings from Last 3 Encounters: 12/05/20 86.6 kg (191 lb) Physical Exam Vitals and nursing note reviewed. Constitutional: General: She is not in acute distress. Appearance: Normal appearance. She is normal weight. HENT: Head: Normocephalic and atraumatic. Right Ear: Tympanic membrane normal. Left Ear: Tympanic membrane normal. Nose: Nose normal. No congestion. Mouth/Throat: Mouth: Mucous membranes are moist. Pharynx: Oropharynx is clear. No oropharyngeal exudate. Eyes: General: No scleral icterus. Extraocular Movements: Extraocular movements intact. Conjunctiva/sclera: Conjunctivae normal. Pupils: Pupils are equal, round, and reactive to light. Cardiovascular: Rate and Rhythm: Normal rate and regular rhythm. Pulses: Normal pulses. Heart sounds: Normal heart sounds. No murmur heard. No gallop. Pulmonary: Effort: Pulmonary effort is normal. Breath sounds: Normal breath sounds. No wheezing, rhonchi or rales. Abdominal: General: Abdomen is flat. Bowel sounds are normal. Palpations: Abdomen is soft. There is no mass. Tenderness: There is no abdominal tenderness. There is no guarding. Hernia: No hernia is present. Musculoskeletal: General: No swelling, tenderness or deformity. Normal range of motion. Cervical back: No rigidity. Right lower leg: No edema. Left lower leg: No edema. Lymphadenopathy: Cervical: No cervical adenopathy. Skin: General: Skin is warm and dry. Capillary Refill: Capillary refill takes less than 2 seconds. Findings: No rash. Neurological: General: No focal deficit present. Mental Status: She is alert and oriented to person, place, and time. Mental status is at baseline. Cranial Nerves: No cranial nerve deficit. Motor: No weakness. Deep Tendon Reflexes: Reflexes normal. Psychiatric: Mood and Affect: Mood normal. Thought Content: Thought content normal. Assessment/Plan Diagnoses and all orders for this visit: Essential hypertension (I10) (Primary) Comments: Continue present Rx check labs Depression, unspecified depression type (F32.9) Comments: Continue present Rx Routine general medical examination at a health care facility (Z00.00) Other orders - CBC with auto differential; Future - Comprehensive metabolic panel; Future - TSH; Future - Urinalysis reflex to microscopic and culture Urine; Future Labs No results found for: HGBA1C No results found for: POCCHOL No results found for: POCHDL No results found for: POCLDL No results found for: POCTRIG No results found for: A1C No results found for: CREATININE No results found for: COLORU, CLARITYU, GLUCOSEUR, BILIRUBINUR, KETONESU, SPECGRAVU, BLOODUR, ERASMO, PROTUR, UROBILINOGEN, POCURNITRITE, LEUKOCYTESU, LOTNUMBER Douglas Suggs MD documented in this encounter Plan of Treatment Scheduled Orders Name Type Priority Associated Diagnoses Orde r Schedule CBC with auto differential Lab Routine Essential hypertension Depression, unspecified depression type Routine general medical examination at a health care facility Expected: 12/05/2020, Expires: 12/05/2021 Comprehensive metabolic panel Lab Routine Essential hypertension Depression, unspecified depression type Routine general medical examination at a health care facility Expected: 12/05/2020, Expires: 12/05/2021 TSH Lab Routine Essential hypertension Depression, unspecified depression type Routine general medical examination at a health care facility Expected: 12/05/2020, Expires: 12/05/2021 Urinalysis reflex to microscopic and culture Urine Microbiology Routine Essential hypertension Depression, unspecified depression type Routine general medical examination at a health care facility Expected: 12/05/2020, Expires: 12/05/2021 documented as of this encounter Visit Diagnoses Diagnosis Essential hypertension- Primary Unspecified essential hypertension Depression, unspecified depression type Routine general medical examination at a health care facility documented in this encounter Historical Medications * This list may reflect changes made after this encounter. Medication Sig Dispense Quantity Refills Last Filled Start D ate End Date amLODIPine (NORVASC) 5 mg tablet daily 08/03/2020 added in this encounter Care Teams Plumbing Service Technician Relationship Specialty Start Date End Date Douglas Suggs MD [address] [facility] [address] [place] [address] PCP - General Internal Medicine 11/08/20 documented as of this encounter
--- OUTSIDE RECORDS SUMMARY | 2024-04-25 15:52 | XMS_ITS | Encounter Summary ---
Author Organization [facility] Address [address] [place] [address] Care Team Providers Care Dough Molder Hand Name Role Phone Douglas Suggs MD Primary Care Provider [phone] Reason for Visit * Reason Onset Date Comments PA FOR OZEMPIC 05/17/2023 Charline Singh ( Maharaj: [id number])Rx #: [id number] (1 MG/DOSE) 4MG/3ML pen-injectors Encounter Details Date Type Department Care Team (Late st Contact Info) Description 05/17/2023 [facility] [address] [facility] [address] [place] [phone] Douglas Suggs MD [address] [facility] [address] [place] [address] PA FOR OZEMPIC (Charline Singh (Maharaj: [id number])/Rx #: [id number]/Ozempic (1 MG/DOSE) 4MG/3ML pen-injectors/) Social History Tobacco Use Types Packs/Day Years Used Date Smoking Tobacco: Never Personal Safety Answer Date Recorded Getting School Help Needed Not on file 04/18 Comments Unknown Sex and Gender Information Value Date Recorded Sex Assigned at Not on file Legal Sex Female 5:03 AM BLOW MOLD MACHINE OPERATOR Gender Identity Not on file Sexual Orientation Not on file documented as of this encounter Ordered Prescriptions Prescription Sig Dispense Quantity Refills Last Filled Start Date End Date semaglutide (WEGOVY) 1 mg/0.5 mL auto-injector Inject 0.5 mL (1 mg total) under the skin every 7 days 9 mL 05/22/2023 05/24/2023 documented in this encounter Miscellaneous Notes * Addendum Note - Christina Hernandez - 05/22/2023 11:33 AM CSTAddended by: CHRISTINA HERNANDEZ on: 05/22/2023 11:33 AM Modules accepted: Orders MOLD MACHINE OPERATOR * Telephone Encounter - Christina Hernandez - 05/22/2023 11:33 AM BLOW MOLD MACHINE OPERATOR Pt notified and voiced understanding. ERX sent to pharmacy. MOLD MACHINE OPERATOR * Telephone Encounter - Christina Hernandez - 05/22/2023 11:10 AM BLOW MOLD MACHINE OPERATOR Pt calling on this, request was denied. MOLD MACHINE OPERATOR * Telephone Encounter - Kim Laureano MA - 05/21/2023 9:39 AM CST Message from Plan Your PA request has been denied. Additional information will be provided in the denial communication. (Message [phone]) MOLD MACHINE OPERATOR * Telephone Encounter - Kim Laureano MA - 05/17/2023 1:27 PM CST Chraline Singh (Maharaj: [id number]) Rx #: [id number] Ozempic (1 MG/DOSE) 4MG/3ML pen-injectors INITIATED PA FOR OZEMPIC THROUGH COVER MY MEDS AND AWAITING INSURANCE APPROVAL OR DENIAL. MOLD MACHINE OPERATOR documented in this encounter Plan of Treatment Not on file documented as of this encounter Visit Diagnoses Not on filedocumented in this encounter Discontinued Medications Medication Sig Discontinue Reason Start Date End Da te semaglutide (OZEMPIC) 1 mg/dose (4 mg/3 mL) pen injector injectionIndications:typ e 2 diabetes mellitus Inject 1 mg under the skin every 7 days Other 05/14/2023 05/22/2023 documented as of this encounter Care Teams Dough Molder Hand Relationship Specialty Start Date End Date Douglas Suggs MD [address] [address] PCP - General Internal Medicine 11/08/20 documented as of this encounter
--- OUTSIDE RECORDS SUMMARY | 2024-04-25 15:52 | XMS_ITS | Encounter Summary ---
Author Organization [facility] Address [address] [place] [address] Care Team Providers Care Material Yard Clerk Name Role Phone Douglas Suggs MD Primary Care Provider [phone] Encounter Details Date Type Department Care Team (Late st Contact Info) Description 10/15/2022 [facility] [address] [facility] [address] [place] [address] Alexandra Hung Social History Tobacco Use Types Packs/Day Years Used Date Smoking Tobacco: Never Comments Unknown Sex and Gender Information Value Date Recorded Sex Assigned at Not on file Legal Sex Female 5:03 AM CROSS TIE TRAM LOADER Gender Identity Not on file Sexual Orientation Not on file documented as of this encounter Ordered Prescriptions Prescription Sig Dispense Quantity Refills Last Filled Start Date End Date semaglutide 0.25 mg or 0.5 mg (2 mg/3 mL) pen injector injection Inject 0.5 mg under the skin every 7 days 3 mL 3 10/15/2022 03/18/2023 documented in this encounter Miscellaneous Notes * Telephone Encounter - Alexandra Hung - 10/15/2022 12:11 PM CDT LMOM regarding RX * Telephone Encounter - Douglas Suggs MD - 10/15/2022 10:57 AM CDT Yes, can increase to 0.5 weekly subq * Telephone Encounter - Alexandra Hung - 10/15/2022 10:36 AM CDT Pt called in stating that she has been on Ozempic 0.25 mg since 03/2022. Pt wants to know if she can get a dose increase on her Ozempic, because her current dosage is not working effectively anymore. Pharmacy [facility] documented in this encounter Plan of Treatment Not on file documented as of this encounter Visit Diagnoses Not on filedocumented in this encounter Discontinued Medications Medication Sig Discontinue Reason Start Date End Da te nadoloL (CORGARD) 40 mg tablet TAKE 1 TABLET(40 MG) BY MOUTH DAILY Dose adjustment 10/01/2022 10/15/2022 documented as of this encounter Care Teams Material Yard Clerk Relationship Specialty Start Date End Date Douglas Suggs MD [address] [address] PCP - General Internal Medicine 11/08/20 documented as of this encounter
--- OUTSIDE RECORDS SUMMARY | 2024-04-25 15:52 | XMS_ITS | Encounter Summary ---
Author Organization [facility] Address [address] [place] [address] Care Team Providers Care Lockstitch Sleeve Setter Name Role Phone Douglas Suggs MD Primary Care Provider Reason for Visit * Reason Onset Date Comments Weight Loss 07/19/2021 Encounter Details Date Type Department Care Team (Late st Contact Info) Description 07/19/2021 [facility] [address] [facility] [address] [place] [phone] Douglas Suggs MD [address] [facility] [address] [place], [place] [id number] Weight Loss Social History Tobacco Use Types Packs/Day Years Used Date Smoking Tobacco: Never Comments Unknown Sex and Gender Information Value Date Recorded Sex Assigned at Not on file Legal Sex Female 5:03 AM TIME STUDY ANALYST Gender Identity Not on file Sexual Orientation Not on file documented as of this encounter Miscellaneous Notes * Telephone Encounter - Lolis Brian MA - 07/20/2021 2:50 PM CDT Pt aware sent the ozempic to pharmacy * Telephone Encounter - Douglas Suggs MD - 07/19/2021 12:04 PM CDT Would prefer ozempic if not done before. * Telephone Encounter - Zandra Buckley MA - 07/19/2021 11:41 AM CDT Patient is wanting to know if you would rx Contrave. She weighed 195 yesterday at [facility] and is 5' garth documented in this encounter Plan of Treatment Not on file documented as of this encounter Visit Diagnoses Not on filedocumented in this encounter Care Teams Lockstitch Sleeve Setter Relationship Specialty Start Date End Date Douglas Suggs MD [id number] [place] [address] PCP - General Internal Medicine 11/08/20 documented as of this encounter
--- OUTSIDE RECORDS SUMMARY | 2024-04-25 15:52 | XMS_ITS | Encounter Summary ---
Author Organization [facility] Address [address] [place] [address] Care Team Providers Care Coloring Checker Name Role Phone Douglas Suggs MD Primary Care Provider Reason for Visit * Reason Onset Date Comments Med Refill 11/08/2020 Encounter Details Date Type Department Care Team (Late st Contact Info) Description 11/08/2020 [facility] [address] [facility] [address] [place] [phone] Douglas Suggs MD [address] [facility] [address] [place], [place] [id number] Med Refill Social History Tobacco Use Types Packs/Day Years Used Date Smoking Tobacco: Never Assessed Comments Unknown Sex and Gender Information Value Date Recorded Sex Assigned at Not on file 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 Gender Identity Not on file Sexual Orientation Not on file documented as of this encounter Ordered Prescriptions Prescription Sig Dispense Quantity Refills Last Filled Start Date End Date nadoloL (CORGARD) 40 mg tablet Take 1 tablet (40 mg total) by mouth daily 30 tablet 11/08/2020 12/07/2020 lisinopriL (PRINIVIL,ZESTRIL) 10 mg tablet Take 1 tablet (10 mg total) by mouth daily 30 tablet 11/08/2020 12/07/2020 documented in this encounter Miscellaneous Notes * Telephone Encounter - Douglas Suggs MD - 11/08/2020 10:17 AM CDT Its fine now that she has an appt * Telephone Encounter - Zandra Buckley MA - 11/08/2020 10:09 AM CDT PATIENT asking for refill Lisinopril and nadalol Apt 12-05-2020 radha parikh [place] documented in this encounter Plan of Treatment Not on file documented as of this encounter Visit Diagnoses Not on filedocumented in this encounter Discontinued Medications Medication Sig Discontinue Reason Start Date End Da te nadoloL (CORGARD) 40 mg tablet TAKE 1 TABLET BY MOUTH EVERY DAY Reorder 10/05/2020 11/08/2020 lisinopriL (PRINIVIL,ZESTRIL) 10 mg tablet TAKE 1 TABLET BY MOUTH DAILY Reorder 10/05/2020 11/08/2020 documented as of this encounter Care Teams Coloring Checker Relationship Specialty Start Date End Date Douglas Suggs MD [id number] [place] [address] PCP - General Internal Medicine 11/08/20 documented as of this encounter
--- OUTSIDE RECORDS SUMMARY | 2024-04-25 15:52 | XMS_ITS | Encounter Summary ---
Author Organization [facility] Address [address] [place] [address] Care Team Providers Care Networking Technology Instructor Name Role Phone Douglas Suggs MD Primary Care Provider [phone] Encounter Details Date Type Department Care Team (Late st Contact Info) Description 05/30/2021 Orders Only [facility] [address] [facility] [address] [place] [phone] Douglas Suggs MD [address] [facility] [address] [place], [place] [id number] Social History Tobacco Use Types Packs/Day Years Used Date Smoking Tobacco: Never Comments Unknown Sex and Gender Information Value Date Recorded Sex Assigned at Not on file Legal Sex Female 5:03 AM CONSULTING PSYCHIATRIST Gender Identity Not on file Sexual Orientation Not on file documented as of this encounter Plan of Treatment Not on file documented as of this encounter Procedures Procedure Name Priority Date/Time Associated Diagnosis Comments SCAN - RADIOLOGY/IMAGING 05/30/2021 3:39 PM CONSULTING PSYCHIATRIST documented in this encounter Results * SCAN - RADIOLOGY/IMAGING (05/30/2021 3:39 PM CONSULTING PSYCHIATRIST) Anatomical Region Laterality Modality Other us Douglas Suggs MD Final Result documented in this encounter Visit Diagnoses Not on filedocumented in this encounter Care Teams Networking Technology Instructor Relationship Specialty Start Date End Date Douglas Suggs MD [address] [facility] [address] [place] [address] PCP - General Internal Medicine 11/08/20 documented as of this encounter
--- OUTSIDE RECORDS SUMMARY | 2024-04-25 15:52 | XMS_ITS | Encounter Summary ---
Author Organization [facility] Address [address] [place] [address] Care Team Providers Care Bariatric Coordinator Name Role Phone Douglas Suggs MD Primary Care Provider Encounter Details Date Type Department Care Team (Late st Contact Info) Description 09/20/2023 Orders Only [facility] [address] [facility] [address] [place] [facility] [place] [phone] Douglas Suggs MD [address] [facility] [address] [place], [place] [id number] Social History Tobacco Use Types Packs/Day Years Used Date Smoking Tobacco: Never Personal Safety Answer Date Recorded Getting School Help Needed Not on file 04/18 Comments Unknown Sex and Gender Information Value Date Recorded Sex Assigned at Not on file 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 Please do monthly breast self exams. documented in this encounter Plan of Treatment Not on file documented as of this encounter Procedures Procedure Name Priority Date/Time Associated Diagnosis Comments SCAN - RADIOLOGY/IMAGING 09/20/2023 4:20 PM CDT documented in this encounter Results * SCAN - RADIOLOGY/IMAGING (09/20/2023 4:20 PM CDT) Anatomical Region Laterality Modality Other us Douglas Suggs MD Final Result documented in this encounter Visit Diagnoses Not on filedocumented in this encounter Care Teams Bariatric Coordinator Relationship Specialty Start Date End Date Douglas Suggs MD [address] [facility] [address] [address] PCP - General Internal Medicine 11/08/20 documented as of this encounter
--- OUTSIDE RECORDS SUMMARY | 2024-04-25 15:52 | XMS_ITS | Encounter Summary ---
Author Organization [facility] Address [address] [place] [address] Care Team Providers Care Sales Service Manager Name Role Phone No, Physician Primary Care Provider [phone] Encounter Details Date Type Department Care Team (Late st Contact Info) Description 04/15/2020 [facility] [address] [facility] [address] [place] [address] Douglas Suggs MD [address] [facility] [address] [place] [address] Social History Tobacco Use Types Packs/Day Years Used Date Smoking Tobacco: Never Assessed Comments Unknown Sex and Gender Information Value Date Recorded Sex Assigned at Not on file 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 Gender Identity Not on file Sexual Orientation Not on file documented as of this encounter Miscellaneous Notes * Telephone Encounter - Lolis Brian MA - 04/15/2020 8:20 AM CST Pt aware/mk MILL MECHANIC * Telephone Encounter - Lolis Brian MA - 04/15/2020 8:20 AM CST ----- Message from Douglas Suggs MD sent at 04/12/2020 2:10 PM WINDMILL MECHANIC ----- Mammogram normal MILL MECHANIC documented in this encounter Plan of Treatment Not on file documented as of this encounter Visit Diagnoses Not on filedocumented in this encounter Care Teams Sales Service Manager Relationship Specialty Start Date End Date No, Physician PCP - General 07/30/19 11/07/20 documented as of this encounter
--- OUTSIDE RECORDS SUMMARY | 2024-04-25 15:52 | XMS_ITS | Encounter Summary ---
Author Organization [facility] Address [address] [place] [address] Care Team Providers Care Casing Cleaner Name Role Phone Douglas Suggs MD Primary Care Provider [phone] Encounter Details Date Type Department Care Team (Late st Contact Info) Description 02/26/2023 Orders Only [facility] [address] [facility] [address] [place] [facility] [place] [address] Lolis Brian, [place] [address] [place] [address] Social History Tobacco Use Types Packs/Day Years Used Date Smoking Tobacco: Never Comments Unknown Sex and Gender Information Value Date Recorded Sex Assigned at Not on file 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 Gender Identity Not on file Sexual Orientation Not on file documented as of this encounter Ordered Prescriptions Prescription Sig Dispense Quantity Refills Last Filled Start Date End Date nadoloL (CORGARD) 40 mg tablet Take 1 tablet (40 mg total) by mouth daily 90 tablet 1 02/26/2023 05/27/2023 documented in this encounter Plan of Treatment Not on file documented as of this encounter Visit Diagnoses Not on filedocumented in this encounter Discontinued Medications Medication Sig Discontinue Reason Start Date End Da te nadoloL (CORGARD) 40 mg tablet Reorder 11/27/2022 1 documented as of this encounter Care Teams Casing Cleaner Relationship Specialty Start Date End Date Douglas Suggs MD [address] [facility] [address] [place] [address] PCP - General Internal Medicine 11/08/20 documented as of this encounter
--- OUTSIDE RECORDS SUMMARY | 2024-04-25 15:52 | XMS_ITS | Encounter Summary ---
Author Organization [facility] Address [address] [place] [address] Care Team Providers Care Wood Lather Name Role Phone Douglas Suggs MD Primary Care Provider [phone] Reason for Referral * Diagnostic Imaging (Routine) - Closed Specialty Diagnoses / Procedures Referred By Contac t Referred To Contact Diagnoses Visit for screening mammogram Procedures Screening Mammogram Bilateral W Douglas Dupont MD [address] [facility] [address] [place] [address] Phone: tel: fax: External Order Referral ID Status Reason Start Date Expiration Date Visits Re quested Visits Authorized [id number] Closed 05/14/2023 06/12/2024 1 1 ING TELEGRAM PERFORMER Reason for Visit * Reason Comments Preventative Care Encounter Details Date Type Department Care Team (Late st Contact Info) Description 05/14/2023 2:30 PM SINGING TELEGRAM PERFORMER Office Visit [facility] [address] [facility] [address] [facility] [place] [address] Douglas Suggs MD [address] [facility] [address] [place] [address] Visit for screening mammogram (Primary Dx); Encounter for lipid screening for cardiovascular disease; Essential hypertension; Depression, unspecified depression type; Hyperglycemia Social History Tobacco Use Types Packs/Day Years Used Date Smoking Tobacco: Never Tobacco Cessation:Counseling Given: Not Answered Personal Safety Answer Date Recorded Getting School Help Needed Not on file 04/18 Comments Unknown Sex and Gender Information Value Date Recorded Sex Assigned at Not on file Legal Sex Female 5:03 AM SINGING TELEGRAM PERFORMER Gender Identity Not on file Sexual Orientation Not on file documented as of this encounter Last Filed Vital Signs Vital Sign Reading Time Taken Comments Blood Pressure 122/85 05/14/2023 2:54 PM SINGING TELEGRAM PERFORMER Pulse 59 05/14/2023 2:54 PM SINGING TELEGRAM PERFORMER Temperature - - Respiratory Rate - - Oxygen Saturation - - Inhaled Oxygen Concentration - - Weight 71.2 kg (157 lb) 05/14/2023 2:54 PM SINGING TELEGRAM PERFORMER Height 154.9 cm (5' 1 ) 05/14/2023 2:54 PM SINGING TELEGRAM PERFORMER Body Mass Index 29.66 05/14/2023 2:54 PM SINGING TELEGRAM PERFORMER documented in this encounter Ordered Prescriptions Prescription Sig Dispense Quantity Refills Last Filled Start Date End Date semaglutide (OZEMPIC) 1 mg/dose (4 mg/3 mL) pen injector injectionIndicatio ns:type 2 diabetes mellitus Inject 1 mg under the skin every 7 days 9 mL 05/14/2023 4 varicella-zoster (SHINGRIX) 50 mcg/0.5 mL vaccine Inject 0.5 mL into the muscle as instructed once for 1 dose 0.5 mL 1 05/14/2023 4 documented in this encounter Progress Notes * Douglas Suggs MD - 05/14/2023 2:30 PM CST Images from the original note were not included. Subjective/Objective Patient ID: Charline Singh is a 58 y.o. female. Chief Complaint Preventative Care HPI Here for evaluation and treatment of her medical problems and a wellness visit. She has been doing reasonably well she has no new complaints 1. Hypertension on medication 2. Depression on medication has been under stress with her mother's recent illnesses in the of her father. Otherwise doing well 3. Hyperglycemia, on ozempic. Has been doing well. Weight loss has occurred. She is feeling much better. Past Surgical History: Procedure Laterality Date SECTION Family History Problem Relation Age of Onset Hyperlipidemia Mother Hypertension Mother Prostate cancer Father Hypertension Father Immunization History Administered Date(s) Administered Hep B Vaccine 04/02/2019, 05/07/2019 Influenza, Quadrivalent, Split, Intramuscular 01/26/2016, 02/19/2019 Influenza, Quadrivalent, Split, Preservative Free, Intramuscular 01/31/2017, 01/16/2018, 01/25/2020 Influenza, Trivalent, High Dose, Split, Preservative Free, Intramuscular 02/11/2013 Pfizer SARS-CoV-2 Monovalent Vaccination (12+ Yrs) PURPLE 05/20/2020, 06/10/2020 Current Outpatient Medications Medication Sig amLODIPine (NORVASC) 5 mg tablet daily escitalopram (LEXAPRO) 5 mg tablet TAKE 1 TABLET BY MOUTH DAILY lisinopriL (PRINIVIL,ZESTRIL) 20 mg tablet Take 20 mg by mouth daily nadoloL (CORGARD) 40 mg tablet Take 1 tablet (40 mg total) by mouth daily semaglutide (Ozempic) 0.25 mg or 0.5 mg (2 mg/3 mL) pen injector injection INJECT 0.5 MG UNDER THE SKIN EVERY 7 DAYS varicella-zoster (SHINGRIX) 50 mcg/0.5 mL vaccine Inject 0.5 mL into the muscle as instructed once for 1 dose Review of Systems Constitutional: Negative for appetite [...] past 24 hrs: BP Pulse Height Weight 05/14/23 1454 122/85 59 154.9 cm (5' 1 ) 71.2 kg (157 lb) Wt Readings from Last 3 Encounters: 05/14/23 71.2 kg (157 lb) 04/04/22 78 kg (172 lb) 12/05/20 86.6 kg (191 lb) Physical Exam [...] Diagnoses and all orders for this visit: Visit for screening mammogram (Z12.31) (Primary) - Screening Mammogram Bilateral W Beto; Future Encounter for lipid screening for cardiovascular disease (Z13.220, Z13.6) - POCT glucose - POCT lipid panel - POCT hemoglobin A1c Essential hypertension (I10) Comments: BP at target. Doing very well Orders: - CBC with auto differential; Future - Comprehensive metabolic panel; Future - TSH; Future - Urinalysis reflex to microscopic and culture Urine; Future Depression, unspecified depression type (F32.A) Comments: Mood is markedly better continue medication Orders: - CBC with auto differential; Future - Comprehensive metabolic panel; Future - TSH; Future - Urinalysis reflex to microscopic and culture Urine; Future Hyperglycemia (R73.9) Comments: Marked improvement on Ozempic. Continue with weight loss of medication Orders: - CBC with auto differential; Future - Comprehensive metabolic panel; Future - TSH; Future - Urinalysis reflex to microscopic and culture Urine; Future Other orders - varicella-zoster (SHINGRIX) 50 mcg/0.5 mL vaccine; Inject 0.5 mL into the muscle as instructed once for 1 dose - semaglutide (OZEMPIC) 1 mg/dose (4 mg/3 mL) pen injector injection; Inject 1 mg under the skin every 7 days Labs Lab Results Component Value Date HGBA1C 5.3 05/14/2023 Lab Results Component Value Date POCCHOL 230 05/14/2023 POCCHOL 235 04/04/2022 Lab Results Component Value Date POCHDL 43 05/14/2023 POCHDL 41 04/04/2022 Lab Results Component Value Date POCLDL 157 05/14/2023 POCLDL 170 04/04/2022 Lab Results Component Value Date POCTRIG 150 05/14/2023 POCTRIG 121 04/04/2022 No results found for: A1C Lab Results Component Value Date CREATININE 0.78 04/04/2022 Lab Results Component Value Date COLORU Yellow 04/04/2022 GLUCOSEUR Negative 04/04/2022 KETONESU Negative 04/04/2022 Douglas Suggs MD ING TELEGRAM PERFORMER documented in this encounter Miscellaneous Notes * Result Encounter Note - Douglas Suggs MD - 05/20/2023 7:49 AM SINGING TELEGRAM PERFORMER Charline, I am happy to report that your labs looked good. No significant abnormalities at this time ING TELEGRAM PERFORMER documented in this encounter Plan of Treatment Scheduled Orders Name Type Priority Associated Diagnoses Orde r Schedule Screening Mammogram Bilateral W Beto Imaging Schedule Routine, Read Routine (OP Routine) Visit for screening mammogram Expected: 05/14/2023, Expires: 07/12/2024 documented as of this encounter Procedures Procedure Name Priority Date/Time Associated Diagnosis Comments URINE CULTURE, COMPREHENSIVE Routine 05/14/2023 3:28 PM SINGING TELEGRAM PERFORMER MICROSCOPIC EXAMINATION Routine 05/14/2023 3:28 PM SINGING TELEGRAM PERFORMER URINALYSIS AND REFLEX TO MICROSCOPIC AND CULTURE Routine 05/14/2023 3:28 PM SINGING TELEGRAM PERFORMER Essential hypertension Depression, unspecified depression type Hyperglycemia CBC WITH AUTO DIFFERENTIAL Routine 05/14/2023 3:28 PM SINGING TELEGRAM PERFORMER Essential hypertension Depression, unspecified depression type Hyperglycemia TSH Routine 05/14/2023 3:28 PM SINGING TELEGRAM PERFORMER Essential hypertension Depression, unspecified depression type Hyperglycemia COMPREHENSIVE METABOLIC PANEL Routine 05/14/2023 3:28 PM SINGING TELEGRAM PERFORMER Essential hypertension Depression, unspecified depression type Hyperglycemia POCT HEMOGLOBIN A1C Routine 05/14/2023 2 :59 PM SINGING TELEGRAM PERFORMER Encounter for lipid screening for cardiovascular disease POCT GLUCOSE 49249 Routine 05/14/2023 2: 58 PM SINGING TELEGRAM PERFORMER Encounter for lipid screening for cardiovascular disease POCT LIPID PANEL Routine 05/14/2023 2:58 PM SINGING TELEGRAM PERFORMER Encounter for lipid screening for cardiovascular disease documented in this encounter Results * Urine Culture, Comprehensive (05/14/2023 3:28 PM SINGING TELEGRAM PERFORMER) Urine culture Final report [facility] - 01 Result 1 Comment [facility] - 01 Comment: Mixed urogenital memo 300 Colonies/mL 05/14/2023 3:28 PM SINGING TELEGRAM PERFORMER 05/14/2023 Narrative [facility] - 05/16/2023 7:10 AM SINGING TELEGRAM PERFORMER Performed at: ??01 - [facility] [address] ??[id number] Enlisted Advisor: Justin Robles PhD, Phone: ??[phone] Douglas Suggs MD LAB MICROBIOLOGY - GENERAL OR DERABLES Final Result Performing Organization Address [facility] de Phone Number [facility] - * Microscopic Examination (05/14/2023 3:28 PM SINGING TELEGRAM PERFORMER) Pathologist [facility] WBC, ur None seen 0 - 5 /hpf [facility] - 01 RBC, ur None seen 0 - 2 /hpf [facility] - 01 Epithelial cells, non-renal, ur None seen 0 - 10 /hpf [facility] - 01 Casts None seen None seen /lpf [facility] - 01 Bacteria, ur None seen None seen/Few [facility] - 01 05/14/2023 3:28 PM SINGING TELEGRAM PERFORMER 05/14/2023 Narrative [facility] - 05/16/2023 7:10 AM SINGING TELEGRAM PERFORMER Performed at: ??01 - [facility] [address] ??[id number] Enlisted Advisor: Justin Robles PhD, Phone: ??[phone] us Douglas Suggs MD LAB BLOOD ORDERABLES Final Re sult Performing Organization Address [facility] de Phone Number [facility] - * (ABNORMAL) Urinalysis reflex to microscopic and culture Urine (05/14/2023 3:28 PM SINGING TELEGRAM PERFORMER) Pathologist [facility] Specific [place] 1.008 1.005 - 1.030 [facility] - 01 pH, ur 6.0 5.0 - 7.5 [facility] - 01 Color, ur Yellow Yellow [facility] - 01 Appearance, ur Clear Clear [facility] - 01 Leukocyte esterase, ur Trace(A) Negative [facility] - 01 Protein, ur Negative Negative/Tra ce [facility] - 01 Glucose, ur Negative Negative [facility] - 01 Ketones, ur Trace(A) Negative [facility] - 01 Blood, ur Trace(A) Negative [facility] - 01 Bilirubin, ur Negative Negative [facility] - 01 Urobilinogen, quant, ur 0.2 0.2 - 1.0 mg/dL [facility] - 01 Nitrites, ur Negative Negative [facility] - 01 Urinalysis, microscopic exam See below: [facility] - 01 Comment:Microscopic was carmelita cated and was performed. Urinalysis Comment [facility] - 01 Comment:This specimen has re flexed to a Urine Culture. Urine 05/14/2023 3:28 PM SINGING TELEGRAM PERFORMER 05/14/2023 Narrative [facility] - 05/16/2023 7:10 AM SINGING TELEGRAM PERFORMER Performed at: ??01 - [facility] ??[id number] Enlisted Advisor: Justin Robles PhD, Phone: ??[phone] Douglas Suggs MD LAB MICROBIOLOGY - GENERAL OR DERABLES Final Result Performing Organization Address [facility]/ZIP Co de Phone Number [facility] - * TSH (05/14/2023 3:28 PM SINGING TELEGRAM PERFORMER) TSH 1.580 0.450 - 4.500 uIU/mL [facility] - Blood 05/14/2023 3:28 PM SINGING TELEGRAM PERFORMER 05/14/2023 Narrative [facility] - 05/16/2023 7:10 AM SINGING TELEGRAM PERFORMER Performed at: ??01 - [facility] ??[id number] Enlisted Advisor: Justin Robles PhD, Phone: ??[phone] Douglas Suggs MD LAB BLOOD ORDERABLES Final Re sult Performing Organization Address City/[facility]/ZIP Co de Phone Number [facility] - * Comprehensive metabolic panel (05/14/2023 3:28 PM SINGING TELEGRAM PERFORMER) Glucose 78 70 - 99 mg/dL [facility] - 01 BUN 13 6 - 24 mg/dL [facility] - 01 Creatinine, Serum 0.73 0.57 - 1.00 mg/dL [facility] - 01 eGFR 95 >59 mL/min/1.73 [facility] - 01 BUN/creat ratio 18 9 - 23 [facility] - 01 Sodium 142 134 - 144 mmol/L [facility] - 01 Potassium, sr 4.1 3.5 - 5.2 mmol/L [facility] - 01 Chloride 102 96 - 106 mmol/L [facility] - 01 CO2 24 20 - 29 mmol/L [facility] - 01 Calcium 9.5 8.7 - 10.2 mg/dL [facility] - 01 Protein, sr 6.7 6.0 - 8.5 g/dL [facility] - 01 Albumin 4.5 3.8 - 4.9 g/dL [facility] - 01 Globulin, Total 2.2 1.5 - 4.5 g/dL [facility] - 01 A/G Ratio 2.0 1.2 - 2.2 [facility] - 01 Bilirubin, Total 0.9 0.0 - 1.2 mg/dL [facility] - 01 Alk phos 79 44 - 121 IU/L [facility] - 01 AST 19 0 - 40 IU/L [facility] - 01 ALT 14 0 - 32 IU/L [facility] - 01 Blood 05/14/2023 3:28 PM SINGING TELEGRAM PERFORMER 05/14/2023 Narrative [facility] - 05/16/2023 7:10 AM SINGING TELEGRAM PERFORMER Performed at: ?? - [facility] [address] ??[id number] Enlisted Advisor: Justin Robles PhD, Phone: ??[phone] us Douglas Suggs MD LAB BLOOD ORDERABLES Final Re sult [facility] - 01 * CBC with auto differential (05/14/2023 3:28 PM SINGING TELEGRAM PERFORMER) WBC 8.1 3.4 - 10.8 x10E3/uL [facility] - 01 RBC 4.34 3.77 - 5.28 x10E6/uL [facility] - 01 Hgb 12.7 11.1 - 15.9 g/dL [facility] - 01 Hct 39.0 34.0 - 46.6 % [facility] - 01 MCV 90 79 - 97 fL [facility] - 01 MCH 29.3 26.6 - 33.0 pg [facility] - 01 MCHC 32.6 31.5 - 35.7 g/dL [facility] - 01 Rdw 14.1 11.7 - 15.4 % [facility] - 01 Platelets 360 150 - 450 x10E3/uL [facility] - 01 Neutrophils pct 48 Not Estab. % [facility] - 01 Lymphs pct 39 Not Estab. % [facility] - 01 Monocytes pct 9 Not Estab. % [facility] - 01 Eosinophils pct 3 Not Estab. % [facility] - 01 Basophil pct 1 Not Estab. % [facility] - 01 Neutrophil abs 3.9 1.4 - 7.0 x10E3/uL [facility] - 01 Lymphs (Absolute) 3.1 0.7 - 3.1 x10E3/uL [facility] - 01 Monocyte abs 0.7 0.1 - 0.9 x10E3/uL [facility] - 01 Eosinophils, abs 0.2 0.0 - 0.4 x10E3/uL [facility] - 01 Basophils, abs 0.1 0.0 - 0.2 x10E3/uL [facility] - 01 Immature Granulocytes 0 Not Estab. % [facility] - 01 Immature Grans (Abs) 0.0 0.0 - 0.1 x10E3/uL [facility] - 01 Blood 05/14/2023 3:28 PM SINGING TELEGRAM PERFORMER 05/14/2023 Narrative [facility] - 05/16/2023 7:10 AM SINGING TELEGRAM PERFORMER Performed at: ?? - [facility] [address] ??[id number] Enlisted Advisor: Justin Robles PhD, Phone: ??[phone] Douglas Suggs MD LAB BLOOD ORDERABLES Final Re sult [facility] - * POCT hemoglobin A1c (05/14/2023 2:59 PM SINGING TELEGRAM PERFORMER) [facility] Hemoglobin A1C, POC 5.3 % Blood 05/14/2023 2:59 PM SINGING TELEGRAM PERFORMER us Douglas Suggs MD POINT OF CARE TEST ORDERABLES Final Result * (ABNORMAL) POCT lipid panel (05/14/2023 2:58 PM SINGING TELEGRAM PERFORMER) Cholesterol, POC 230 mg/dL HDL, POC 43 mg/dL Triglycerides, POC 150 mg/dL LDL Cholesterol POC 157 mg/dL Chol/HDL Ratio, POC 5.4 Non-HDL Cholesterol, POC 187 mg/dL Cholesterol Total, POC 230 mg/dL Capillary blood 05/14/2023 2 :58 PM SINGING TELEGRAM PERFORMER us Douglas Suggs MD POINT OF CARE TEST ORDERABLES Final Result * POCT glucose (05/14/2023 2:58 PM SINGING TELEGRAM PERFORMER) Glucose Blood, POC 74 mg/dL Blood 05/14/2023 2:58 PM SINGING TELEGRAM PERFORMER us Douglas Sugsg MD POINT OF CARE TEST ORDERABLES Final Result documented in this encounter Visit Diagnoses Diagnosis Visit for screening mammogram- Primary Encounter for lipid screening for cardiovascular disease Essential hypertension Unspecified essential hypertension Depression, unspecified depression type Hyperglycemia Other abnormal glucose documented in this encounter Discontinued Medications Medication Sig Discontinue Reason Start Date End Da te semaglutide (Ozempic) 0.25 mg or 0.5 mg (2 mg/3 mL) pen injector injection INJECT 0.5 MG UNDER THE SKIN EVERY 7 DAYS Dose adjustment 03/18/2023 05/14/2023 documented as of this encounter Care Teams Wood Lather Relationship Specialty Start Date End Date Douglas Suggs MD [address] [facility] [address] [place] [address] PCP - General Internal Medicine 11/08/20 documented as of this encounter
--- OUTSIDE RECORDS SUMMARY | 2024-04-25 15:52 | XMS_ITS | Encounter Summary ---
Author Organization [facility] Address [address] [place] [address] Care Team Providers Care Rn Residential Name Role Phone Douglas Suggs MD Primary Care Provider [phone] Reason for Visit * Reason Comments Preventative Care Encounter Details Date Type Department Care Team (Late st Contact Info) Description 04/04/2022 3:00 PM TASSEL MAKING MACHINE OPERATOR Office Visit [facility] [address] [facility] [address] [place] [id number] Douglas Suggs MD [address] [facility] [address] [place] [address] Screening for lipid disorders (Primary Dx); Encounter for screening colonoscopy; Hyperglycemia; Routine general medical examination at a health care facility; Essential hypertension; Depression, unspecified depression type Social History Tobacco Use Types Packs/Day Years Used Date Smoking Tobacco: Never Tobacco Cessation:Counseling Given: Not Answered Comments Unknown Sex and Gender Information Value Date Recorded Sex Assigned at Not on file Legal Sex Female 5:03 AM TASSEL MAKING MACHINE OPERATOR Gender Identity Not on file Sexual Orientation Not on file documented as of this encounter Last Filed Vital Signs Vital Sign Reading Time Taken Comments Blood Pressure 128/76 04/04/2022 3:07 PM TASSEL MAKING MACHINE OPERATOR Pulse 57 04/04/2022 3:07 PM TASSEL MAKING MACHINE OPERATOR Temperature - - Respiratory Rate - - Oxygen Saturation - - Inhaled Oxygen Concentration - - Weight 78 kg (172 lb) 04/04/2022 3:07 PM TASSEL MAKING MACHINE OPERATOR Height 154.9 cm (5' 1 ) 04/04/2022 3:07 PM TASSEL MAKING MACHINE OPERATOR Body Mass Index 32.5 04/04/2022 3:07 PM TASSEL MAKING MACHINE OPERATOR documented in this encounter Ordered Prescriptions Prescription Sig Dispense Quantity Refills Last Filled Start Date End Date semaglutide (Ozempic) 0.25 mg or 0.5 mg(2 mg/1.5 mL) pen injector injection Inject 0.25 mg under the skin every 7 days 1.5 mL 04/04/2022 3 varicella-zoster (SHINGRIX) 50 mcg/0.5 mL vaccine Inject 0.5 mL into the muscle as instructed once for 1 dose 0.5 mL 1 04/04/2022 2 documented in this encounter Progress Notes * Douglas Suggs MD - 04/04/2022 3:00 PM CST Images from the original note were not included. Subjective/Objective Patient ID: Charline Singh is a 57 y.o. female. Chief Complaint Preventative Care HPI Here for evaluation and treatment of her medical problems and a wellness visit. She has been doing reasonably well she has no new complaints 1. Hypertension on medication 2. Depression on medication has been under stress with her mother's recent illnesses in the of her father. Otherwise doing well 3. Hyperglycemia, on ozempic Past Surgical History: Procedure Laterality Date SECTION Family History Problem Relation Age of Onset Hyperlipidemia Mother Hypertension Mother Prostate cancer Father Hypertension Father Social History Tobacco Use Smoking status: Never Smokeless tobacco: None Substance and Sexual Activity Drug use: Yes Types: Alcohol Sexual activity: None Alcohol Use: Not on file Immunization History Administered Date(s) Administered Hep B Vaccine 04/02/2019, 05/07/2019 Influenza, Quadrivalent, Split, Intramuscular 01/26/2016, 02/19/2019 Influenza, Quadrivalent, Split, Preservative Free, Intramuscular 01/31/2017, 01/16/2018, 01/25/2020 Influenza, Trivalent, High Dose, Split, Preservative Free, Intramuscular 02/11/2013 Pfizer SARS-CoV-2 Vaccination (12+ yrs) PURPLE 05/20/2020, 06/10/2020 Current Outpatient Medications Medication Sig amLODIPine (NORVASC) 5 mg tablet daily escitalopram (LEXAPRO) 5 mg tablet TAKE 1 TABLET BY MOUTH DAILY lisinopriL (PRINIVIL,ZESTRIL) 20 mg tablet Take 20 mg by mouth daily nadoloL (CORGARD) 40 mg tablet TAKE 1 TABLET(40 MG) BY MOUTH DAILY Ozempic 0.25 mg or 0.5 mg(2 mg/1.5 mL) pen injector injection INJECT 0.25 MG UNDER THE SKIN EVERY 7DAYS varicella-zoster (SHINGRIX) 50 mcg/0.5 mL vaccine Inject [...] past 24 hrs: BP Pulse Height Weight 04/04/22 1507 128/76 57 154.9 cm (5' 1 ) 78 kg (172 lb) Wt Readings from Last 3 Encounters: 04/04/22 78 kg (172 lb) 12/05/20 86.6 [...] Diagnoses and all orders for this visit: Screening for lipid disorders (Z13.220) (Primary) - POCT glucose - POCT lipid panel - CBC with auto differential; Future - Comprehensive metabolic panel; Future - TSH; Future - Urinalysis reflex to microscopic and culture Urine; Future Encounter for screening colonoscopy (Z12.11) - Ambulatory referral to Gastroenterology; Future Hyperglycemia (R73.9) - CBC with auto differential; Future - Comprehensive metabolic panel; Future - TSH; Future - Urinalysis reflex to microscopic and culture Urine; Future Routine general medical examination at a health care facility (Z00.00) Comments: Check labs doing well Orders: - CBC with auto differential; Future - Comprehensive metabolic panel; Future - TSH; Future - Urinalysis reflex to microscopic and culture Urine; Future Essential hypertension (I10) - CBC with auto differential; Future - Comprehensive metabolic panel; Future - TSH; Future - Urinalysis reflex to microscopic and culture Urine; Future Depression, unspecified depression type (F32.A) Comments: Mood has been good Orders: - CBC with auto differential; Future - Comprehensive metabolic panel; Future - TSH; Future - Urinalysis reflex to microscopic and culture Urine; Future Other orders - varicella-zoster (SHINGRIX) 50 mcg/0.5 mL vaccine; Inject 0.5 mL into the muscle as instructed once for 1 dose - semaglutide (Ozempic) 0.25 mg or 0.5 mg(2 mg/1.5 mL) pen injector injection; Inject 0.25 mg underthe skin every 7 days Labs No results found for: HGBA1C Lab Results Component Value Date POCCHOL 235 04/04/2022 Lab Results Component Value Date POCHDL 41 04/04/2022 Lab Results Component Value Date POCLDL 170 04/04/2022 Lab Results Component Value Date POCTRIG 121 04/04/2022 No results found for: A1C No results found for: CREATININE No results found for: COLORU, CLARITYU, GLUCOSEUR, BILIRUBINUR, KETONESU, SPECGRAVU, BLOODUR, ERASMO, PROTUR, UROBILINOGEN, POCURNITRITE, LEUKOCYTESU, LOTNUMBER Douglas Suggs MD EL MAKING MACHINE OPERATOR documented in this encounter Plan of Treatment Not on file documented as of this encounter Procedures Procedure Name Priority Date/Time Associated Diagnosis Comments MICROSCOPIC EXAMINATION Routine 04/04/2022 3:47 PM TASSEL MAKING MACHINE OPERATOR URINALYSIS AND REFLEX TO MICROSCOPIC AND CULTURE Routine 04/04/2022 3:47 PM TASSEL MAKING MACHINE OPERATOR Screening for lipid disorders Hyperglycemia Routine general medical examination at a [facility] care facility Essential hypertension Depression, unspecified depression type CBC WITH AUTO DIFFERENTIAL Routine 04/04/2022 3:47 PM TASSEL MAKING MACHINE OPERATOR Screening for lipid disorders Hyperglycemia Routine general medical examination at a [facility] care facility Essential hypertension Depression, unspecified depression type TSH Routine 04/04/2022 3:47 PM TASSEL MAKING MACHINE OPERATOR Screening for lipid disorders Hyperglycemia Routine general medical examination at a [facility] care facility Essential hypertension Depression, unspecified depression type COMPREHENSIVE METABOLIC PANEL Routine 04/04/2022 3:47 PM TASSEL MAKING MACHINE OPERATOR Screening for lipid disorders Hyperglycemia Routine general medical examination at a [facility] care facility Essential hypertension Depression, unspecified depression type POCT GLUCOSE 21150 Routine 04/04/2022 3: 29 PM TASSEL MAKING MACHINE OPERATOR Screening for lipid disorders POCT LIPID PANEL Routine 04/04/2022 3:29 PM TASSEL MAKING MACHINE OPERATOR Screening for lipid disorders documented in this encounter Results * Microscopic Examination (04/04/2022 3:47 PM TASSEL MAKING MACHINE OPERATOR) WBC, ur None seen 0 - 5 /hpf [facility] - 01 RBC, ur None seen 0 - 2 /hpf [facility] - 01 Epithelial cells, non-renal, ur None seen 0 - 10 /hpf [facility] - 01 Casts None seen None seen /lpf [facility] - 01 Bacteria, ur None seen None seen/Few [facility] - 01 04/04/2022 3:47 PM TASSEL MAKING MACHINE OPERATOR 04/04/2022 Narrative [facility] - 04/05/2022 8:16 AM TASSEL MAKING MACHINE OPERATOR Performed at: ??01 - [facility] [address] ??[id number] Supervisor Powdered Sugar: Justin Robles PhD, Phone: ??[phone] us Douglas Suggs MD LAB BLOOD ORDERABLES Final Re sult [facility] - 01 * (ABNORMAL) Urinalysis reflex to microscopic and culture Urine (04/04/2022 3:47 PM TASSEL MAKING MACHINE OPERATOR) Pathologist [facility] Specific [place] <=1.005(A) 1.005 - 1.030 [facility] - 01 pH, ur 6.5 5.0 - 7.5 [facility] - 01 Color, ur Yellow Yellow [facility] - 01 Appearance, ur Clear Clear [facility] - 01 Leukocyte esterase, ur Negative Negative [facility] - 01 Protein, ur Negative Negative/Tra ce [facility] - 01 Glucose, ur Negative Negative [facility] - 01 Ketones, ur Negative Negative [facility] - 01 Blood, ur Negative Negative [facility] - 01 Bilirubin, ur Negative Negative [facility] - 01 Urobilinogen, quant, ur 0.2 0.2 - 1.0 mg/dL [facility] - 01 Nitrites, ur Negative Negative [facility] - 01 Urinalysis, microscopic exam Comment [facility] - 01 Comment:Microscopic follows if indicated. Urinalysis, microscopic exam See below: [facility] - 01 Comment:Microscopic was carmelita cated and was performed. Urinalysis Comment [facility] - 01 Comment:This specimen will n ot reflex to a Urine Culture. Urine 04/04/2022 3:47 PM TASSEL MAKING MACHINE OPERATOR 04/04/2022 Narrative [facility] - 04/05/2022 8:16 AM TASSEL MAKING MACHINE OPERATOR Performed at: ??01 - [facility] ??[id number] Supervisor Powdered Sugar: Justin Robles PhD, Phone: ??[phone] Douglas Suggs MD LAB MICROBIOLOGY - GENERAL OR DERABLES Final Result Performing Organization Address [facility]/ZIP Co de Phone Number [facility] - * TSH (04/04/2022 3:47 PM TASSEL MAKING MACHINE OPERATOR) TSH 1.450 0.450 - 4.500 uIU/mL [facility] - 01 Blood 04/04/2022 3:47 PM TASSEL MAKING MACHINE OPERATOR 04/04/2022 Narrative [facility] - 04/05/2022 8:16 AM TASSEL MAKING MACHINE OPERATOR Performed at: ?? - [facility] ??[id number] Supervisor Powdered Sugar: Justin Robles PhD, Phone: ??[phone] Douglas Suggs MD LAB BLOOD ORDERABLES Final Re sult Performing Organization Address City/[facility]/ZIP Co de Phone Number [facility] - * Comprehensive metabolic panel (04/04/2022 3:47 PM TASSEL MAKING MACHINE OPERATOR) Glucose 81 70 - 99 mg/dL [facility] - 01 BUN 7 6 - 24 mg/dL [facility] - 01 Creatinine, Serum 0.78 0.57 - 1.00 mg/dL [facility] - 01 eGFR 88 >59 mL/min/1.73 [facility] - 01 BUN/creat ratio 9 9 - 23 [facility] - 01 Sodium 142 134 - 144 mmol/L [facility] - 01 Potassium, sr 4.3 3.5 - 5.2 mmol/L [facility] - 01 Chloride 102 96 - 106 mmol/L [facility] - 01 CO2 25 20 - 29 mmol/L [facility] - 01 Calcium 9.5 8.7 - 10.2 mg/dL [facility] - 01 Protein, sr 6.8 6.0 - 8.5 g/dL [facility] - 01 Albumin 4.4 3.8 - 4.9 g/dL [facility] - 01 Globulin, Total 2.4 1.5 - 4.5 g/dL [facility] - 01 A/G Ratio 1.8 1.2 - 2.2 [facility] - 01 Bilirubin, Total 0.9 0.0 - 1.2 mg/dL [facility] - 01 Alk phos 82 44 - 121 IU/L [facility] - 01 AST 23 0 - 40 IU/L [facility] - 01 ALT 24 0 - 32 IU/L [facility] - 01 Blood 04/04/2022 3:47 PM TASSEL MAKING MACHINE OPERATOR 04/04/2022 Narrative [facility] - 04/05/2022 8:16 AM TASSEL MAKING MACHINE OPERATOR Performed at: ??01 - [facility] [address] ??[id number] Supervisor Powdered Sugar: Justin Robles PhD, Phone: ??[phone] us Douglas Suggs MD LAB BLOOD ORDERABLES Final Re sult [facility] - 01 * CBC with auto differential (04/04/2022 3:47 PM TASSEL MAKING MACHINE OPERATOR) WBC 7.0 3.4 - 10.8 x10E3/uL [facility] - 01 RBC 4.32 3.77 - 5.28 x10E6/uL [facility] - 01 Hgb 12.5 11.1 - 15.9 g/dL [facility] - 01 Hct 38.1 34.0 - 46.6 % [facility] - 01 MCV 88 79 - 97 fL [facility] - 01 MCH 28.9 26.6 - 33.0 pg [facility] - 01 MCHC 32.8 31.5 - 35.7 g/dL [facility] - 01 Rdw 13.4 11.7 - 15.4 % [facility] - 01 Platelets 325 150 - 450 x10E3/uL [facility] - 01 Neutrophils pct 42 Not Estab. % [facility] - 01 Lymphs pct 44 Not Estab. % [facility] - 01 Monocytes pct 9 Not Estab. % [facility] - 01 Eosinophils pct 4 Not Estab. % [facility] - 01 Basophil pct 1 Not Estab. % [facility] - 01 Neutrophil abs 2.9 1.4 - 7.0 x10E3/uL [facility] - 01 Lymphs (Absolute) 3.1 0.7 - 3.1 x10E3/uL [facility] - 01 Monocyte abs 0.6 0.1 - 0.9 x10E3/uL [facility] - 01 Eosinophils, abs 0.3 0.0 - 0.4 x10E3/uL [facility] - 01 Basophils, abs 0.1 0.0 - 0.2 x10E3/uL [facility] - 01 Immature Granulocytes 0 Not Estab. % [facility] - 01 Immature Grans (Abs) 0.0 0.0 - 0.1 x10E3/uL [facility] - 01 Blood 04/04/2022 3:47 PM TASSEL MAKING MACHINE OPERATOR 04/04/2022 Narrative [facility] - 04/05/2022 8:16 AM TASSEL MAKING MACHINE OPERATOR Performed at: ??01 - [facility] [address] ??[id number] Supervisor Powdered Sugar: Justin Robles PhD, Phone: ??[phone] us Douglas Suggs MD LAB BLOOD ORDERABLES Final Re sult [facility] - * (ABNORMAL) POCT lipid panel (04/04/2022 3:29 PM TASSEL MAKING MACHINE OPERATOR) Cholesterol, POC 235 mg/dL HDL, POC 41 mg/dL Triglycerides, POC 121 mg/dL LDL Cholesterol POC 170 mg/dL Chol/HDL Ratio, POC 5.8 Non-HDL Cholesterol, POC 194 mg/dL Cholesterol Total, POC 235 mg/dL Capillary blood 04/04/2022 3 :29 PM TASSEL MAKING MACHINE OPERATOR us Douglas Suggs MD POINT OF CARE TEST ORDERABLES Final Result * POCT glucose (04/04/2022 3:29 PM TASSEL MAKING MACHINE OPERATOR) Glucose Blood, POC 78 mg/dL Blood 04/04/2022 3:29 PM TASSEL MAKING MACHINE OPERATOR us Douglas Suggs MD POINT OF CARE TEST ORDERABLES Final Result documented in this encounter Visit Diagnoses Diagnosis Screening for lipid disorders- Primary Encounter for screening colonoscopy Hyperglycemia Other abnormal glucose Routine general medical examination at a health care facility Essential hypertension Unspecified essential hypertension Depression, unspecified depression type documented in this encounter Discontinued Medications Medication Sig Discontinue Reason Start Date End Da te azithromycin (ZITHROMAX) 250 mg tablet Take 2 tabs (500 mg) by mouth today, than 1 tab (250 mg) daily for 4 days. Therapy completed 12/11/2021 04/04/2022 lisinopriL (PRINIVIL,ZESTRIL) 10 mg tablet Take 1 tablet (10 mg total) by mouth daily 05/23/2021 04/04/2022 Ozempic 0.25 mg or 0.5 mg(2 mg/1.5 mL) pen injector injection INJECT 0.25 MG UNDER THE SKIN EVERY 7 DAYS Reorder 11/13/2021 04/04/2022 documented as of this encounter Historical Medications * This list may reflect changes made after this encounter. lisinopriL (PRINIVIL,ZESTRIL ) 20 mg tablet Take 20 mg by mouth daily 01/27/2022 01/31/2024 added in this encounter Care Teams Rn Residential Relationship Specialty Start Date End Date Douglas Suggs MD [address] [place] [address] PCP - General Internal Medicine 11/08/20 documented as of this encounter
--- OUTSIDE RECORDS SUMMARY | 2024-04-25 15:52 | XMS_ITS | Encounter Summary ---
Author Organization [facility] Address [address] [place] [address] Care Team Providers Care Padded Box Sewer Name Role Phone Douglas Suggs MD Primary Care Provider [phone] Reason for Referral * Diagnostic Imaging (Routine) - Closed Specialty Diagnoses / Procedures Referred By Lizbeth wade Referred To Contact Diagnoses Screening mammogram for breast cancer Procedures Screening Mammogram Bilateral W Marie Love NP [address] [place] [address] DR KNIGHT [address] [place] [address] Phone: tel: fax: [address] [phone] Referral ID Status Reason Start Date Expiration Date Visits Re quested Visits Authorized [id number] Closed 01/31/2024 03/01/2025 1 1 Reason for Visit * Reason Comments Gynecologic Exam Encounter Details Date Type Department Care Team (Late st Contact Info) Description 01/31/2024 8:30 AM CDT Office Visit [facility] at [address] [phone] Marie Reeves NP [address] [place] [address] [address] KNIGHT [address] [place] [phone] Well woman exam (Primary Dx); Screening mammogram for breast cancer Social History Tobacco Use Types Packs/Day Years [...] on file Legal Sex Female 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 Well Woman Exam History of Presenting Illness Charline Singh is a 58 y.o. year old female who presents for a well woman exam. She is doing well with no complaints. Her CHANNEL WORKER history if significant for vaginal and delivery, and ablation. She denies any bleeding since her ablation. Menstrual history: No LMP recorded. Contraception:Menopause. OB History Para Term AB Living 2 2 2 2 SAB IAB Ectopic Multiple Live Births 2 # Outcome Date GA Lbr Kem/2nd Weight Sex Type Anes PTL Lv 2 Term 09/25/98 40w0d F Vaginal JEANNETTE 1 Term 02/26/96 40w0d M JEANNETTE Screenings Pap: unsure, we will repeat today. Papa: 08/2023, order sent. Colonoscopy: 2022 BMD: Gardasil: ROS Review of Systems Constitutional: Negative for unexpected weight change. Gastrointestinal: Negative for abdominal pain, nausea and vomiting. Endocrine: Negative for cold intolerance and heat intolerance. Genitourinary: Negative for decreased urine volume, difficulty urinating, dyspareunia, dysuria, flank pain, frequency, genital sores, hematuria, menstrual problem, pelvic pain, urgency, vaginal discharge and vaginal pain. Neurological: Negative for dizziness, syncope, light-headedness and headaches. Breast: Negative for tenderness, breast redness, breast discharge and lump(s). Objective BP 128/82 (BP Location: Right arm, Patient Position: Sitting) Ht 154.9 cm (5' 1 ) Wt 158 lb (71.7 kg) BMI 29.85 kg/m?? Physical Exam Constitutional: Appearance: Normal appearance. HENT: Head: Normocephalic and atraumatic. Neck: Thyroid: No thyroid mass, thyromegaly or thyroid tenderness. Cardiovascular: Rate and Rhythm: Normal rate and regular rhythm. Pulmonary: Effort: Pulmonary effort is normal. Breath sounds: Normal breath sounds. No wheezing or rhonchi. Chest: Breasts: Right: Normal. No bleeding, mass, nipple discharge, skin change or tenderness. Left: Normal. No bleeding, mass, nipple discharge, skin change or tenderness. Abdominal: General: There is no distension. Palpations: Abdomen is soft. There is no mass. Tenderness: There is no abdominal tenderness. Hernia: No hernia is present. There is no hernia in the right inguinal area or left inguinal area. Genitourinary: Pelvic exam was performed with patient supine. Rectum normal, vagina normal, uterus normal and normal vulva. There is no rash, tenderness or lesion on the right labia. There is no rash, tenderness or lesion on the left labia. Right adnexa: normal. Left adnexa: normal. Cervix: Normal exam. Musculoskeletal: General: No swelling or tenderness. Normal range of motion. Right lower leg: No edema. Left lower leg: No edema. Lymphadenopathy: Head: Right side of head: No submental or submandibular adenopathy. Left side of head: No submental or submandibular adenopathy. Cervical: No cervical adenopathy. Upper Body: Right upper body: No supraclavicular or axillary adenopathy. Left upper body: No supraclavicular or axillary adenopathy. Lower Body: No right inguinal adenopathy. No left inguinal adenopathy. Skin: General: Skin is warm and dry. Findings: No bruising. Neurological: Mental Status: She is alert and oriented to person, place, and time. Psychiatric: Mood and Affect: Mood normal. Behavior: Behavior normal. Assessment and Plan Diagnoses and all orders for this visit: Well woman exam (Primary) Comments: Doing well. Call with any CHANNEL WORKER concerns. Continue monthly self breast exams. Orders: - Pap, reflex HPV; Future Recommended screenings and preventive care discussed: Breast cancer: Breast Self Exam encouraged. Pap and HR HPV done. MVI daily recommended and Calcium and vitamin D BID recommended , Return in about 1 year (around 01/30/2025) for well woman exam, sooner if needed . Marie Reeves NP 01/31/2024 documented in this encounter Miscellaneous Notes * Addendum Note - Korey Yusuf MA - 01/31/2024 8:30 AM CDTAddended by: KOREY YUSUF on: 01/31/2024 11:49 AM Modules accepted: Orders documented in this encounter Plan of Treatment Scheduled Orders Name Type Priority Associated Diagnoses Orde r Schedule Screening Mammogram Bilateral W Beto Imaging Schedule Routine, Read Routine (OP Routine) Screening mammogram for breast cancer Expected: 01/31/2024, Expires: 04/01/2025 documented as of this encounter Procedures Procedure Name Priority Date/Time Associated Diagnosis Comments PAP, REFLEX HPV Routine 01/31/2024 10:30 AM CDT Well woman exam documented in this encounter Results * Pap, reflex HPV (01/31/2024 10:30 AM [...] has been evaluated with computer assisted technology. Mobile Manager Joanthan Stallings Comment: BKA, CT(ASCP) CT screening location: [facility]ely [facility] [place] [address] Comment Mely Champagne Comment: EXPLANATORY NOTE: The [...] CDT 02/01/2024 2:06 AM CDT Marie Reeves POST ADOPTION COORDINATOR LAB CYTOLOGY ORDERABLES Fin al Result [facility] [place] [address] [facility] [place] [phone] documented in this encounter Visit Diagnoses Diagnosis Well woman exam- Primary Routine general medical examination at a health care facility Screening mammogram for breast cancer documented in this encounter Discontinued Medications Medication Sig Discontinue Reason Start Date End Da te lisinopriL (PRINIVIL,ZESTRIL) 20 mg tablet Take 20 mg by mouth daily Therapy completed 01/27/2022 01/31/2024 tirzepatide, weight loss, (Zepbound) 2.5 mg/0.5 mL pen injector Inject 0.5 mL (2.5 mg total) under the skin every 7 days Therapy completed 05/24/2023 01/31/2024 nadoloL (CORGARD) 40 mg tablet TAKE 1 TABLET(40 MG) BY MOUTH DAILY Therapy completed 05/27/2023 01/31/2024 documented as of this encounter Historical Medications * This list may reflect changes made after this encounter. lisinopriL (PRINIVIL,ZESTRIL ) 2.5 mg tablet Take 1 tablet (2.5 mg total) by mouth daily 03/31/2024 added in this encounter Care Teams Padded Box Sewer Relationship Specialty Start Date End Date Douglas Suggs MD [address] [address] PCP - General Internal Medicine 11/08/20 documented as of this encounter
--- OUTSIDE RECORDS SUMMARY | 2024-04-25 15:52 | XMS_ITS | Encounter Summary ---
Author Organization [facility] Address [address] [place] [address] Care Team Providers Care It Infrastructure Project Manager Name Role Phone Douglas Suggs MD Primary Care Provider [phone] Encounter Details Date Type Department Care Team (Late st Contact Info) Description 06/14/2021 [facility] [address] [facility] [address] [place] [address] Douglas Suggs MD [address] [facility] [address] [place], [place] [id number] Social History Tobacco Use Types Packs/Day Years Used Date Smoking Tobacco: Never Comments Unknown Sex and Gender Information Value Date Recorded Sex Assigned at Not on file Legal Sex Female 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 P CLIPPER documented in this encounter Plan of Treatment Not on file documented as of this encounter Visit Diagnoses Not on filedocumented in this encounter Care Teams It Infrastructure Project Manager Relationship Specialty Start Date End Date Douglas Suggs MD [address] [facility] [address] [place] [address] PCP - General Internal Medicine 11/08/20 documented as of this encounter
--- OUTSIDE RECORDS SUMMARY | 2024-04-25 15:52 | XMS_ITS | Encounter Summary ---
Author Organization [facility] Address [address] [place] [address] Care Team Providers Care Riveting Machine Operator Name Role Phone Douglas Suggs MD Primary Care Provider Encounter Details Date Type Department Care Team (Late st Contact Info) Description 07/20/2021 Orders [facility] [address] 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 HOUSE SUPERVISOR Gender Identity Not on file Sexual Orientation Not on file documented as of this encounter Ordered Prescriptions Prescription Sig Dispense Quantity Refills Last Filled Start Date End Date semaglutide (Ozempic) 0.25 mg or 0.5 mg(2 mg/1.5 mL) pen injector injection Inject 0.25 mg under the skin every 7 days 1 mL 1 07/20/2021 11/13/2021 documented in this encounter Plan of Treatment Not on file documented as of this encounter Visit Diagnoses Not on filedocumented in this encounter Care Teams Riveting Machine Operator Relationship Specialty Start Date End Date Douglas Suggs MD [address] [facility] [address] [place] [address] PCP - General Internal Medicine 11/08/20 documented as of this encounter
--- OUTSIDE RECORDS SUMMARY | 2024-04-25 15:52 | XMS_ITS | Continuity of Care Document ---
Author Organization [facility] Address [address] [place] [address] Phone Care Team Providers Care Road Worker Name Role Phone Sudeep Man DO Unavailable Unavailable Advance Directives Directive Yes / No Effective Date File Name No Information Encounters Encounter Description Practice Location Reason(s) For Visit Diagnoses Date Provider Providers Copied on Encounter [facility], [address], [place], [place], [id number], [place] [phone] [facility] No Information Donovan Campbell. [address] [place], [address], [place]. tel: [phone] Family History Family Member Type Diagnosis Age At Onset No Information Payers Payer name Insurance type Covered republican ID Authoriza tiruiz(s) [employer] SOI CI [id number] Social History Type Description Quantity Date Captured [...]
--- OUTSIDE RECORDS SUMMARY | 2024-04-25 15:52 | XMS_ITS | Encounter Summary ---
Author Organization [facility] Address [address] [place] [address] Care Team Providers Care Systems Testing Laboratory Technician Name Role Phone Douglas Suggs MD Primary Care Provider Reason for Visit * Reason Onset Date Comments sinus congestion 04/01/2024 Encounter Details Date Type Department Care Team (Late st Contact Info) Description 04/01/2024 [facility] [address] [facility] [address] [place] [address] Douglas Suggs MD [address] [facility] [address] [place] [address] sinus congestion Social History Tobacco Use Types Packs/Day Years [...] on file Legal Sex Female 5:03 AM CARDIAC EXERCISE PHYSIOLOGIST Gender Identity Not on file Sexual Orientation Not on file documented as of this encounter Ordered Prescriptions Prescription Sig Dispense Quantity Refills Last Filled Start Date End Date azithromycin (ZITHROMAX) 250 mg tablet Take 2 tabs (500 mg) by mouth today, than 1 tab (250 mg) daily for 4 days. 6 tablet 04/01/2024 04/06/2024 documented in this encounter Miscellaneous Notes * Telephone Encounter - Zandra Buckley CMA - 04/01/2024 11:01 AM CST Rx sent IAC EXERCISE PHYSIOLOGIST * Telephone Encounter - Douglas Suggs MD - 04/01/2024 9:49 AM CST Please send out a zpak #1 Sig: as directed If not allergic. IAC EXERCISE PHYSIOLOGIST * Telephone Encounter - Zandra Buckley CMA - 04/01/2024 8:14 AM CST Symptoms (primary and all associated):.pt has had cold cough symptoms for 3 weeks, severe sinus congestion and sorethroat Taking dayquil and nyquil and zyrtec Asking for medication Cheryl I did schedule pt for a follow up appt in May. Onset/Frequency:.3 weeks Temperature:. Recent POCT testing (Strep/Flu/COVID/etc.):. Recent lab results:. Recent B/P or SPO2 results:. Current treatments (both OTC and RX):. Current dosage of insulin/Coumadin:. Last office visit:. Preferred phone:. Confirm pharmacy:. Joshua parikh Allergies reviewed:.Morphine IAC EXERCISE PHYSIOLOGIST documented in this encounter Plan of Treatment Not on file documented as of this encounter Visit Diagnoses Not on filedocumented in this encounter Care Teams Systems Testing Laboratory Technician Relationship Specialty Start Date End Date Douglas Suggs MD [address] [address] PCP - General Internal Medicine 11/08/20 documented as of this encounter
--- OUTSIDE RECORDS SUMMARY | 2024-04-25 15:53 | XMS_ITS | Encounter Summary ---
Author Organization [facility] Care Team Providers Care Applications Administrator Name Role Phone Unavailable Primary Care Provider Unavailabl e Encounter Details Date Type Department Care Team (Late st Contact Info) Description 03/30/2013 - 03/30/2013 11:59 PM CUSTOMER SERVICER Hospital Encounter [facility] Douglas Suggs MD [address] [facility] [address] [place] [address] Ousmane Pinto MD [address] [place] [address] Other screening mammogram; Other breast disorders; Inconclusive mammogram Social History Tobacco Use Types Packs/Day Years Used Date Smoking Tobacco: Never Assessed Comments Unknown Sex and Gender Information Value Date Recorded Sex Assigned at Not on file Legal Sex Female 5:03 AM CUSTOMER SERVICER Gender Identity Not on file Sexual Orientation Not on file documented as of this encounter Plan of Treatment Not on file documented as of this encounter Procedures Procedure Name Priority Date/Time Associated Diagnosis Comments SCREENING MAMMOGRAM Routine 03/30/2013 1 2:02 PM CUSTOMER SERVICER documented in this encounter Results * Screening Mammogram (03/30/2013 12:02 PM CUSTOMER SERVICER) Anatomical Region Laterality Modality Breast N/A Mammography 03/30/2013 12:0 2 PM CUSTOMER SERVICER Narrative 04/14/2013 12:29 PM CUSTOMER SERVICER MARISOL ANDRES MD, PHD FINAL REPORT ACC# ??Date Time ??Exam [id number] Mar 30, 2013 12:02:00 BMV [id number] Van Screening Mamm ?? Technologist(s): Keena Pickett; ; EXAMINATION: ADDENDUM 04/14/2013 12:29PM ADDENDUM: 04/13/2013 The present examination has been compared to prior imaging studies performed at [facility] on 02/22/2011, 07/12/2009, 07/07/2008 and 02/25/1922. Focal asymmetry in the left breast is benign. Annual screening mammography is recommended. OVERALL FINAL ASSESSMENT: BI-RADS CATEGORY 2: ??Benign. END OF ADDENDUM ??Mammogram Technique: Bilateral Full-Field Digital Screening Mammogram was performed. ??Views obtained: ??bilateral craniocaudal and bilateral mediolateral oblique. Computer Aided Detection was performed with [email or web address].com3 version 9.3. Mammogram Findings: There are scattered fibroglandular densities. There is a focal asymmetry in the lower outer quadrant of the left breast. There is no suspicious abnormality in the right breast. IMPRESSION: ??Focal asymmetry in the left breast requires additional evaluation. COMPARISON TO PRIOR FILMS is recommended. OVERALL FINAL ASSESSMENT: BI-RADS CATEGORY 0: ??Incomplete: Need Additional Imaging Evaluation - Comparison with Prior Studies Requested By: Ousmane Pinto ??M.D. Dictated By: ?? MARISOL ANDRES MD, PHD ??on Mar ??2012 ??2:50P This document has been electronically signed by: MARISOL ANDRES MD, PHD on Mar ??3 2012 ??2:50P ??on Apr 14 2013 12:29P This Addendum has been electronically signed by: MARISOL ANDRES MD, PHD on Apr 14 2013 12:29P Procedure Note Provider, MD Elsi - 09/01/2016 MARISOL ANDRES MD, PHD FINAL REPORT ACC# Date Time Exam [id number] Mar 30, 2013 12:02:00 BMV [id number] Abdiel Screening Mamm Technologist(s): Keena Pickett; ; EXAMINATION: ADDENDUM 04/14/2013 12:29PM ADDENDUM: 04/13/2013 The present examination has been compared to prior imaging studies performed at [facility] on 02/22/2011, 07/12/2009, 07/07/2008 and 02/25/1922. Focal asymmetry in the left breast is benign. Annual screening mammography is recommended. OVERALL FINAL ASSESSMENT: BI-RADS CATEGORY 2: Benign. END OF ADDENDUM Mammogram Technique: Bilateral Full-Field Digital Screening Mammogram was performed. Views obtained: bilateral craniocaudal and bilateral mediolateral oblique. Computer Aided Detection was performed with TakWak.3 version 9.3. Mammogram Findings: There are scattered fibroglandular densities. There is a focal asymmetry in the lower outer quadrant of the leftbreast. There is no suspicious abnormality in the right breast. IMPRESSION: Focal asymmetry in the left breast requires additional evaluation. COMPARISON TO PRIOR FILMS is recommended. OVERALL FINAL ASSESSMENT: BI-RADS CATEGORY 0: Incomplete: Need Additional Imaging Evaluation - Comparison with Prior Studies Requested By: Ousmane Pinto M.D. Dictated By: MARISOL ANDRES MD, PHD on Mar 31 2013 2:50P This document has been electronically signed by: MARISOL ANDRES MD, PHD on Mar 31 2013 2:50P on Apr 14 2013 12:29P This Addendum has been electronically signed by: MARISOL ANDRES MD, PHD on Apr 14 2013 12:29P Historical Provider MD GAMINO MAMMO PROCEDURES Haley l Result documented in this encounter Visit Diagnoses Diagnosis Other screening mammogram Other breast disorders Inconclusive mammogram documented in this encounter
--- OUTSIDE RECORDS SUMMARY | 2024-04-25 15:53 | XMS_ITS | Encounter Summary ---
Author Organization [facility] Address [address] [place] [address] Care Team Providers Care Paint Line Production Supervisor Name Role Phone No, Physician Primary Care Provider [phone] Encounter Details Date Type Department Care Team (Late st Contact Info) Description 04/12/2020 Orders Only [facility] [address] [facility] [address] [place] [address] Scanning, Provider Social History Tobacco Use Types Packs/Day Years Used Date Smoking Tobacco: Never Assessed Comments Unknown Sex and Gender Information Value Date Recorded Sex Assigned at Not on file Legal Sex Female 5:03 AM LOCATION AND MEASUREMENT TECHNICIAN Gender Identity Not on file Sexual Orientation Not on file documented as of this encounter Plan of Treatment Not on file documented as of this encounter Procedures Procedure Name Priority Date/Time Associated Diagnosis Comments SCAN - LABS 04/12/2020 11:02 AM LOCATION AND MEASUREMENT TECHNICIAN SCAN - RADIOLOGY/IMAGING 04/12/2020 8:39 AM LOCATION AND MEASUREMENT TECHNICIAN documented in this encounter Results * SCAN - LABS (04/12/2020 11:02 AM LOCATION AND MEASUREMENT TECHNICIAN) us Douglas Suggs MD Final Result * SCAN - RADIOLOGY/IMAGING (04/12/2020 8:39 AM LOCATION AND MEASUREMENT TECHNICIAN) Anatomical Region Laterality Modality Other us Provider Scanning Final Result documented in this encounter Visit Diagnoses Not on filedocumented in this encounter Care Teams Paint Line Production Supervisor Relationship Specialty Start Date End Date No, Physician PCP - General 07/30/19 11/07/20 documented as of this encounter
--- OUTSIDE RECORDS SUMMARY | 2024-04-25 15:53 | XMS_ITS | Encounter Summary ---
Author Organization [facility] Address [address] [place] [address] Care Team Providers Care Recyclable Materials Distributor Name Role Phone No, Physician Primary Care Provider [phone] Encounter Details Date Type Department Care Team (Late st Contact Info) Description 03/31/2020 Orders Only [facility] [address] [facility] [address] [place] [facility] [place] [address] Scanning, Provider Social History Tobacco Use Types Packs/Day Years Used Date Smoking Tobacco: Never Assessed Comments Unknown Sex and Gender Information Value Date Recorded Sex Assigned at Not on file Legal Sex Female 5:03 AM BORDER PATROL AGENT Gender Identity Not on file Sexual Orientation Not on file documented as of this encounter Plan of Treatment Not on file documented as of this encounter Procedures Procedure Name Priority Date/Time Associated Diagnosis Comments SCAN - RADIOLOGY/IMAGING 03/31/2020 9:39 AM BORDER PATROL AGENT documented in this encounter Results * SCAN - RADIOLOGY/IMAGING (03/31/2020 9:39 AM BORDER PATROL AGENT) Anatomical Region Laterality Modality Other us Provider Scanning Final Result documented in this encounter Visit Diagnoses Not on filedocumented in this encounter Care Teams Recyclable Materials Distributor Relationship Specialty Start Date End Date No, Physician PCP - General 07/30/19 11/07/20 documented as of this encounter
--- OUTSIDE RECORDS SUMMARY | 2024-04-25 15:53 | XMS_ITS | Encounter Summary ---
Author Organization [facility] Address [address] [place] [address] Care Team Providers Care Pelletizer Operator Name Role Phone No, Physician Primary Care Provider [phone] Encounter Details Date Type Department Care Team (Late st Contact Info) Description 04/11/2020 Orders Only [facility] [address] [facility] [address] [place] [facility] [place] [address] Douglas Suggs MD [address] [facility] [address] [place], [place] [id number] Exposure to COVID-19 virus (Primary Dx) Social History Tobacco Use Types Packs/Day Years Used Date Smoking Tobacco: Never Assessed Comments Unknown Sex and Gender Information Value Date Recorded Sex Assigned at Not on file Legal Sex Female 5:03 AM PAVING BLOCK CUTTER Gender Identity Not on file Sexual Orientation Not on file documented as of this encounter Plan of Treatment Scheduled Orders Name Type Priority Associated Diagnoses Orde r Schedule COVID-19 CORONAVIRUS RNA (OUTSIDE LABS) Nasopharyngeal Microbiology Routine Exposure to COVID-19 virus Expected: 04/11/2020, Expires: 04/11/2021 documented as of this encounter Visit Diagnoses Diagnosis Exposure to COVID-19 virus- Primary documented in this encounter Care Teams Pelletizer Operator Relationship Specialty Start Date End Date No, Physician PCP - General 07/30/19 11/07/20 documented as of this encounter
--- OUTSIDE RECORDS SUMMARY | 2024-04-25 15:53 | XMS_ITS | Encounter Summary ---
Author Organization [facility] Address [address] [place] [address] Care Team Providers Care Ve Teacher Name Role Phone Unavailable Primary Care Provider Unavailabl e Encounter Details Date Type Department Care Team (Latest Contact Info) Description 02/24/2014 11:19 AM CDT Hospital Encounter [facility] Ousmane Pinto MD [address] [place] [address] Other screening mammogram Social History Tobacco Use Types Packs/Day Years Used Date Smoking Tobacco: Never Assessed Comments Unknown Sex and Gender Information Value Date Recorded Sex Assigned at Not on file Legal Sex Female 5:03 AM ASSEMBLER FINAL Gender Identity Not on file Sexual Orientation Not on file documented as of this encounter Plan of Treatment Not on file documented as of this encounter Procedures Procedure Name Priority Date/Time Associated Diagnosis Comments GENERAL RADIOLOGY REPORT 02/25/2014 12:00 AM CDT SCREENING MAMMOGRAM 2D BILATERAL Routine 02/24/2014 11:21 AM CDT documented in this encounter Results * GENERAL RADIOLOGY REPORT (02/25/2014 12:00 AM CDT) Anatomical Region Laterality Modality Radiographic Davina ging Narrative 02/25/2014 12:00 AM CDT Ordered by an unspecified provider. us Historical Provider MD GAMINO XR PROCEDURES Final R esult * Screening Mammogram 2D Bilateral (02/24/2014 11:21 [...] Coker M.D. [place]:g[place] 09:12 AM 09:12 AM [facility] [EOD] Narrative 02/25/2014 9:16 AM [...] BENIGN. The patient will be entered into [employer] system for an annual screening mammogram in 1 year. THIS IS AN ELECTRONICALLY VERIFIED REPORT 02/25/2014 9:12 AM: Ignacio Coker M.D. Ignacio Coker M.D. [place] 09:12 AM 09:12 AM [facility] [EOD] Ousmane Pinto MD IMG MAMMO PROCEDURES Final Result documented in this encounter Visit Diagnoses Diagnosis Other screening mammogram documented in this encounter
--- OUTSIDE RECORDS SUMMARY | 2024-04-25 15:53 | XMS_ITS | Encounter Summary ---
Author Organization [facility] Address [address] [facility] [address] [place] [address] Care Team Providers Care Gaggerman Name Role Phone No, Physician Primary Care Provider Encounter Details Date Type Department Care Team (Late st Contact Info) Description 07/30/2019 Orders Only [facility] Cardiology [address] [place] [address] Maxine Kendall MD [address] [place], [place] [address] Social History Tobacco Use Types Packs/Day Years Used Date Smoking Tobacco: Never Assessed Comments Unknown Sex and Gender Information Value Date Recorded Sex Assigned at Not on file Legal Sex Female 5:03 AM CURRICULUM DEVELOPMENT SPECIALIST Gender Identity Not on file Sexual Orientation Not on file documented as of this encounter Plan of Treatment Not on file documented as of this encounter Procedures Procedure Name Priority Date/Time Associated Diagnosis Comments CARDIOLOGY DOCUMENT SCAN Routine 07/30/2019 documented in this encounter Results * SCAN - CARDIOLOGY (07/30/2019) Anatomical Region Laterality Modality Other Maxine Kendall MD CV CARDIAC SERVICES PROCEDU RES Final Result documented in this encounter Visit Diagnoses Not on filedocumented in this encounter Care Teams Gaggerman Relationship Specialty Start Date End Date No, Physician PCP - General 07/30/19 11/07/20 documented as of this encounter
== END 2024-04-18 13:10 | disposition home or self-care (01) ==
PROVIDERS: Emergency Provider Nurse Practitioner Family; PCP Internal Medicine
DX: U07.1 COVID-19 (principal); I10 Essential (primary) hypertension; Z79.899 Other long term (current) drug therapy
CPT/HCPCS: 87081; 87426; 87804; 87880; 99213; G0463

== ENCOUNTER 2024-11-04 15:15 | Outpatient (CLI) | payer OTHER, SELFPAY ==
--- NOTE | ~2024-11-04 | MM_ITS ---
EXAMINATION: MM screening [facility] BI w scooter HISTORY: Screening TECHNIQUE: Craniocaudal and mediolateral oblique 3-D tomosynthesis images were obtained and synthetic 2-D images were generated. CAD analysis was submitted and interpreted. COMPARISON: Comparison to multiple prior studies sequentially, with oldest reviewed study dated 07/2017. BREAST PARENCHYMAL COMPOSITION: Not Dense: The breasts are almost entirely fatty. FINDINGS: There is no evidence of suspicious mass, calcification, or architectural distortion to sugg est malignancy in either breast. There has been no suspicious interval change. IMPRESSION: 1. No mammographic evidence of malignancy. 2. Recommend routine screening mammography in one year. BI-RADS Category 1: Negative Reviewed, dictated and finalized at location A.
--- OUTSIDE RECORDS SUMMARY | 2024-11-04 15:21 | XMS_ITS | Continuity of Care Document ---
Author Organization [facility] Address [address] [place] [address] Phone Care Team Providers Care Raiser Helper Name Role Phone Sudeep Man DO Unavailable Unavailable Advance Directives Directive Yes / No Effective Date File Name No Information Encounters Encounter Description Practice Location Reason(s) For Visit Diagnoses Date Provider Providers Copied on Encounter [facility], [address], [place], [place], [address], [place] tel:[phone] [facility] No Information Donovan Campbell. [address] [place], [address], [place]. tel: [phone] Family History Family Member Type Diagnosis Age At Onset No Information Payers Payer name Insurance type Covered alliance party ID Authoriza tiruiz(s) [employer] SOI CI [id number] Social History Type Description Quantity Date Captured [...]
--- OUTSIDE RECORDS SUMMARY | 2024-11-04 15:21 | XMS_ITS | Clinical Summary ---
Author Organization [facility] [place] [address] Address [address] [place] [address] Care Team Providers Care Rivet Maker Name Role Phone Douglas Suggs MD Primary Care Provider [phone] Allergies Active Allergy Reactions Criticality Noted Date Comments Morphine Rash,Itching High 08/05/2019 Medications amLODIPine (NORVASC) 5 mg tablet daily 08/03/2020 Active lisinopriL (PRINIVIL,ZESTRI L) 2.5 mg tablet Take 1 tablet (2.5 mg total) by mouth daily 90 tablet 2 03/31/2024 Active escitalopram (LEXAPRO) 5 mg tablet TAKE 1 TABLET(5 MG) BY MOUTH DAILY 90 tablet 3 08/26/2024 Active Active Problems Problem Noted Date Diagnosed Date Primary hypertension 08/05/2019 Immunizations Immunization Administration Dates Next Due Hep B Vaccine 05/07/2019,04/02/2019 Influenza, Quadrivalent, Spl it, Intramuscular 02/19/2019,01/26/2016 Influenza, Quadrivalent, Spl it, Preservative Free, Intramuscular 02/19/2023,03/11/2022,01/25/2020,01/16,01/31/2017 Influenza, Trivalent, High D ose, Split, Preservative Free, Intramuscular 02/11/2013 Influenza, Trivalent, IM (MDV) 01/21/2021 [place] SARS-CoV-2 Monovalent Vaccination (12+ Yrs) PURPLE 06/10/2020,05/20/2020 [...] staff should administer the PHQ-9) 0 01/31/2024 Comments Unknown Sex and Gender Information Value Date Recorded Sex Assigned at Not on file Legal Sex Female 5:03 AM HOOD FITTER Gender Identity Not on file Sexual Orientation [...] Sign Reading Time Taken Comments Blood Pressure 136/84 07/27/2024 3:24 PM CDT Pulse 74 07/27/2024 3:24 PM CDT Temperature - - Respiratory Rate - - Oxygen Saturation - - Inhaled Oxygen Concentration - - Weight 84.4 kg (186 lb) 07/27/2024 3:24 PM CDT Height 154.9 cm (5' 1) 07/27/2024 3:24 PM CDT Body Mass Index 35.14 07/27/2024 3:24 PM CDT Plan of Treatment Health Maintenance Due Date Last Done Comments Hepatitis C Screening 1965 DTaP/Tdap/Td Vaccine (1 - Tdap) 1975 Zoster Vaccine (1 of 2) 2014 Breast Cancer Screening-Mammogram 05/30/2022 02/24/2014, 03/30/2013 Covid-19 Vaccine ( season) 2023 02/19/2023, 03/11/2022, 04/15/2021, Additional history exists Influenza Vaccine (#1) 2024 , 03/11/2022, 01/21/2021, Additional history exists Cervical Cancer Screening 01/30/2025 01/31/2024 Depression Screening 01/30/2025 01/31/2024 Regular Well Visit/Exam 18-64 07/27/2025 07/27/2024, 01/31/2024, 05/14/2023, Additional history exists Colon Cancer Screening-Colonoscopy 06/25/2032 06/25/2022 Hepatitis B Screening Completed 05/07/2019, 019 Pneumococcal vaccine <65 Aged Out No longer eligible based on patient's age to complete this topic Procedures Procedure Name Priority Date/Time Associated Diagnosis Comments PAP, REFLEX HPV Routine 01/31/2024 10:30 AM CDT Well woman exam SCREENING MAMMOGRAM 2D BILATERAL Routine 02/24/2014 11:21 AM CDT from Last 3 Months or Most Recently Relevant to Health Maintenance Results * Pap, reflex HPV (01/31/2024 10:30 [...] has been evaluated with computer assisted technology. Perfect Bind Machine Operator Jonathan Stallings Comment: BKA, CT(ASCP) CT screening location: [facility] [place] [facility] [place] [address] Comment Mely Champagne Comment: EXPLANATORY NOTE: The [...] 02/01/2024 2:06 AM CDT us Marie Reeves [facility] LAB CYTOLOGY ORDERABLES Fin al Result [facility] [place] [address] [address] [place] [id number] * Screening Mammogram 2D Bilateral (02/24/2014 11:21 [...] Coker M.D. [place]isselle 09:12 AM 09:12 AM [facility] [EOD] Narrative 02/25/2014 9:16 AM CDT EXAMINATION: BILATERAL DIGITAL SCREENING MAMMOGRAM HISTORY: Routine [...] BENIGN. The patient will be entered into [employer] system for an annual screening mammogram in 1 year. THIS IS AN ELECTRONICALLY VERIFIED REPORT 02/25/2014 9:12 AM: Ignacio Coker M.D. Ignacio Coker M.D. [place]:gisselle 09:12 AM 09:12 AM [facility] [EOD] Ousmane Pinto MD IMG MAMMO PROCEDURES Final Result from Last 3 Months or Most Recently Relevant to Health Maintenance Insurance [facility] [employer] [facility] [employer] [facility] [employer] Care Teams Rivet Maker Relationship Specialty Start Date End Date Douglas Suggs MD PCP - General Internal Medicine 11/08/20
--- OUTSIDE RECORDS SUMMARY | 2024-11-04 15:21 | XMS_ITS | Referral Summary ---
Author Organization [facility] [place] [address] Address [address] [place] [address] Care Team Providers Care Principal System Software Engineer Name Role Phone Douglas Suggs MD Primary Care Provider [phone] Allergies Active Allergy Reactions Criticality Noted Date [...] Intramuscular 02/11/2013 Influenza, Trivalent, IM (MDV) 01/21/2021 [place] SARS-CoV-2 Monovalent Vaccination (12+ Yrs) PURPLE 06/10/2020,05/20/2020 [...] on file Legal Sex Female 5:03 AM GIS INSTRUCTOR Gender Identity Not on file Sexual Orientation [...] 07/27/2024 3:24 PM CDT Plan of Treatment Not on file [...] has been evaluated with computer assisted technology. [facility] Mitra Champagne Comment: BKA, CT(ASCP) CT screening location: [place] [facility] [place] [address] Comment Mely Champagne Comment: EXPLANATORY NOTE: The [...] NP LAB CYTOLOGY ORDERABLES Fin al [facility] [address] [place] [id number] * Screening Mammogram 2D Bilateral (02/24/2014 11:21 [...] Coker M.D. NH:gisselle 09:12 AM 09:12 AM [facility] [EOD] Narrative 02/25/2014 9:16 AM CDT [...] BENIGN. The patient will be entered into [employer] system for an annual screening mammogram in 1 year. THIS IS AN ELECTRONICALLY VERIFIED REPORT 02/25/2014 9:12 AM: Ignacio Coker M.D. Ignacio Coker M.D. NH:gisselle 09:12 AM 09:12 AM [facility] [EOD] Ousmane Pinto MD IMG MAMMO PROCEDURES Final Result from Last 3 Months or Most Recently Relevant to Health Maintenance Insurance [facility] [employer] [facility] [employer] [facility] [employer] Care Teams Principal System Software Engineer Relationship Specialty Start Date End Date Douglas Suggs MD PCP - General Internal Medicine 11/08/20
== END 2024-11-04 15:16 | disposition home or self-care (01) ==
LOC: ANHIMG 15:18
PROVIDERS: PCP Internal Medicine; Visit Provider Internal Medicine
DX: Z12.31 Encounter for screening mammogram for malignant neoplasm of breast (principal)
CPT/HCPCS: 77063; 77067